=== PATIENT | male | born 1960 | race Two or more races ===

== ENCOUNTER 2020-03-03 17:20 | Outpatient (REF) | payer MEDICARE, MEDICAID, SELFPAY | END 2020-03-03 17:21 | disposition home or self-care (01) | LOC: HO.LAB 17:20 | PROVIDERS: PCP Internal Medicine Geriatric Medicine; Visit Provider Internal Medicine | DX: Z20.828 Contact with and (suspected) exposure to other viral communicable diseases (principal) | CPT/HCPCS: C9803; U0003 ==

== ENCOUNTER 2020-07-10 13:57 | Outpatient (REF) | payer OTHER, SELFPAY ==
[2020-07-11 10:12] LABS: SARS COV2 PCR INHOUSE NEGATIVE (Negative)
== END 2020-07-10 13:58 | disposition home or self-care (01) ==
LOC: HO.LAB 13:57
PROVIDERS: Visit Provider Internal Medicine
DX: Z20.822 Contact with and (suspected) exposure to COVID-19 (principal)
CPT/HCPCS: C9803; U0003

== ENCOUNTER 2021-01-14 13:13 | Outpatient (REF) | payer OTHER, SELFPAY | END 2021-01-14 13:14 | disposition home or self-care (01) | LOC: HO.LAB 13:13 | PROVIDERS: PCP Internal Medicine Geriatric Medicine; Visit Provider Internal Medicine | DX: Z20.822 Contact with and (suspected) exposure to COVID-19 (principal) | CPT/HCPCS: C9803; U0003; U0005 ==

== ENCOUNTER 2021-03-26 19:24 | Emergency (ER) | payer OTHER, SELFPAY ==
[2021-03-26 19:31] VITALS: BP 133/85; PULSE 71; RESP 20; TEMP 36.3; O2SAT 98; BMI 36.3
[2021-03-26 20:12] LABS: COVID-19 Test Positive (Negative)
[2021-03-26 23:41] VITALS: BP 148/79; PULSE 65; RESP 17; TEMP 36.7; O2SAT 97
--- NOTE | 2021-03-27 00:10 | ED.GENADULT ---
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 Patient declined any shortness of breath, patient emergency department has no respiratory issue, satting on 97% of room air. Related Data Allergies Allergy/AdvReac Type Severity Reaction Status Date / Time metformin Allergy Unknown diarrhea Verified 05/04/18 00:00 sumatriptan Allergy Unknown headache Verified 05/04/18 00:00 No Known Allergies Allergy Unverified 12/27/19 16:44 [No Known Allergies*] Kale Inhibitors Allergy Unknown cough Uncoded 04/05/19 00:00 Influenza Virus Vaccine Allergy Unknown SOB, chest Uncoded 04/05/19 00:00 tightness Review of Systems Review of Systems: All other systems are reviewed and are negative Constitutional: Reports as per HPI and Reports no additional constitutional complaints Eyes: Reports as per HPI and Reports no additional eye complaints Reports system reviewed and no additional complaints, except as documented Cardiovascular: Reports as per HPI and Reports no additional cardiovascular complaints Respiratory: Reports as per HPI and Reports no additional respiratory complaints Gastrointestinal: Reports as per HPI and Reports no additional gastrointestinal complaints Genitourinary: Reports no additional female genitourinary complaints Musculoskeletal: Reports no additional musculoskeletal complaints Skin/Breast: Reports system reviewed and no additional complaints, except as docu Psychiatric: Reports no additional psychiatric complaints Endocrine: Reports no additional endocrine complaints Hematologic/Lymphatic: Reports no additional hematologic/lymphatic complaints Allergic/Immunologic: Reports no additional allergic/immunologic complaints Reports system reviewed and no additional complaints, except as documented and Reports Abnormal speech present [facility] Social History Social History Advance Directives: No Advance Directives Information Provided: No Physical Exam Vital Signs: Vital Signs: Last Vital Signs Temp 98.0 F 03/26/21 23:41 Pulse 65 03/26/21 23:41 Resp 17 03/26/21 23:41 BP 148/79 H 03/26/21 23:41 Pulse Ox 97 03/26/21 23:41 BMI result Body Mass Index 36.3 vital signs have been reviewed as appeared to be correct. Blood pressure normal. Heart rate normal. Respiration rate normal. Temperature normal. Oxygen saturation normal. Appearance: Alert. Oriented X3. No acute distress. Head: Normal external exam. Normocephalic. Atraumatic. No Staley signs noted. No raccoon eyes noted Eyes: PERRLA. EOMI. Conjunctiva and sclera normal. Eyelids normal. ENT: TM's Normal. Pharynx normal. Uvula midline. Moist mucous membranes. No trismus noted. No drooling noted. No muffled voice noted. Neck: Normal inspection. Neck supple. FROM. No adenopathy. Thyroid Normal. No meningeal signs. No neck mass noted. CVS: Normal heart rate and rhythm. Heart sound normal. No murmurs noted. Pulses normal throughout. Respiratory: No respiratory distress. Painless inspiration. Breath sounds normal. No wheezes/rales/rhonchi noted. Chest nontender. No accessory muscle usage noted or decreased air movement noted. Abdomen: Soft and nontender. Bowel sounds normal in all 4 quadrants. No distention noted. No organomegaly noted. No visible injury noted. Back: No CVA tenderness. Full range of motion noted. Skin: Skin warm and dry. Normal skin color. Normal skin turgor. No rashes/lesions/lacerations noted. Extremities: No lower extremity edema. Extremities exhibit normal range of motion. Extremities nontender. Neuro: Oriented X 3. Cranial nerve exam: II-XII are grossly intact No motor deficit. No sensory deficit. Reflexes normal. Course Course Course Narrative: Assessment and plan. 60-year-old male came in withFor respiratory symptoms, patient tested positive for COVID, patient was instructed to self-quarantine at home for 2 weeks. Return if any difficulty breathing. Medical Decision Making Lab Data Lab results reviewed: Yes I reviewed the patient's lab results. Labs: Lab Results 03/26/21 Range/Units 19:42 COVID-19 ([facility]) Positive A (Negative) COVID-19 Clin Com See Note Discharge Plan Discharge Clinical Impression: COVID-19 virus infection Patient Disposition: Home, Self-Care Instructions: COVID-19 (Coronavirus Disease 2019) (ED) Additional Instructions: quarantine at home for 2 weeks, frequent hand washing, wears a mask at all times. Keep 6 ft testing from people. Referrals: Physician,Unknown J [Primary Care Provider] - 2 days
== END 2021-03-27 00:28 | disposition home or self-care (01) ==
PROVIDERS: Emergency Provider Emergency Medicine
DX: U07.1 COVID-19 (principal); R50.9 Fever, unspecified
CPT/HCPCS: 36415; 87635; 99283; 99284

== ENCOUNTER 2021-05-11 13:08 | Outpatient (REF) | payer OTHER, SELFPAY ==
--- NOTE | ~2021-05-11 | XR_ITS ---
EXAMINATION: XR LUMBOSACRAL SPINE WITH OBLIQUES CLINICAL INFORMATION: Lumbar ago with bilateral lower extremity sciatica. COMPARISON: CT abdomen pelvis 01/30/2019 TECHNIQUE: AP, both oblique, and lateral views of the lumbar spine. Lateral view of the lumbosacral junction. FINDINGS: 5 nonrib-bearing lumbar vertebral bodies are visualized. There is minimal dextroscoliosis of the lumbar spine which may be positional in nature. Lumbar vertebral body heights are maintained. Lumbar disc spaces are also well maintained. There are minimal degenerative changes of the posterior elements of the lower lumbar spine. Sacroiliac joints are symmetric. Pelvic calcifications are likely vascular in nature. XR/XR lumbar spine 4V min IMPRESSION: Minimal degenerative changes of the lower lumbar spine.
== END 2021-05-11 13:09 | disposition home or self-care (01) ==
LOC: HO.XRAY 13:08
PROVIDERS: Absent Provider Internal Medicine Geriatric Medicine; PCP Internal Medicine Geriatric Medicine; Visit Provider Nurse Practitioner
DX: M54.41 Lumbago with sciatica, right side (principal); M54.42 Lumbago with sciatica, left side
CPT/HCPCS: 72110

== ENCOUNTER 2022-01-15 08:19 | Emergency (ER) | payer OTHER, SELFPAY ==
--- NOTE | ~2022-01-15 | CT_ITS ---
EXAMINATION: CT ABDOMEN AND PELVIS WITHOUT CONTRAST CLINICAL INFORMATION: Bilateral lower abdominal pain. Rule out appendicitis or diverticulitis COMPARISON: CT abdomen pelvis 01/30/2019 TECHNIQUE: Multidetector volumetric imaging was performed from the superior aspect of the liver through the pubic symphysis. Sagittal and coronal reformatted images were obtained on the technologist's workstation. This CT examination was performed using dose optimization techniques as appropriate, variously including the following: *Automated exposure control *Adjustment of mA and/or kV according to patient size (this includes techniques or standardized protocols for targeted exams where dose is matched to indication/reason for exam; i.e. extremities or head) *Use of iterative reconstruction technique DLP: 724 mGy-cm FINDINGS: LUNG BASES: Minimal right basilar and lingular subsegmental atelectasis. Small amount of ingested material within the distal thoracic esophagus noted incidentally. Equivocal small hiatal hernia. LIVER, GALLBLADDER, AND BILIARY TREE: The liver is normal in size, shape, and attenuation. No focal hepatic lesion or biliary ductal dilatation is present. The gallbladder is unremarkable with no evidence of radiopaque gallstones, gallbladder wall thickening, or obvious pericholecystic inflammatory changes. PANCREAS: Unremarkable. SPLEEN: Unremarkable. ADRENAL GLANDS: Unremarkable. KIDNEYS AND URETERS: Unchanged subcentimeter low-density probable cyst in the right mid pole, too small to characterize. No other renal lesion. No renal calculi or hydronephrosis. No perinephric collection. BLADDER: Slightly thick-walled appearance favored due to limited distention. GASTROINTESTINAL TRACT: Extensive colonic diverticulosis. No evidence of acute diverticulitis. Moderate to large amount of formed stool distends the rectum. No dilated bowel loops. No bowel wall thickening. Normal appendix. No ascites or free air. ABDOMINAL WALL: Small fat-containing left inguinal hernia. LYMPH NODES: No lymphadenopathy. VASCULAR: Normal caliber abdominal aorta. Mild vascular calcifications. PELVIC VISCERA: Unremarkable. OSSEOUS STRUCTURES: No acute fracture or suspicious osseous lesion. Mild multilevel degenerative disc disease. CT/CT abdomen pelvis wo IV con IMPRESSION: 1. Extensive colonic diverticulosis. No evidence of acute diverticulitis. 2. Normal appendix. No findings of acute appendicitis. 3. Moderate to large amount of formed stool distending the rectum. Correlate clinically with signs or symptoms of constipation/fecal impaction.
[2022-01-15 09:04] VITALS: BP 138/71; PULSE 65; RESP 18; TEMP 36.6; O2SAT 96; BMI 38.2
[2022-01-15 10:55] LABS: MANUAL DIFF FLAG NO
[2022-01-15 10:57] LABS: Basophils Percent Auto 0.4 % (0-2); Eosinophils Absolute Auto 0.1 X10*3/uL (0.0-0.4); Eosinophils Percent Auto 1.7 % (0-4); Hematocrit 37.2 % (42.0-52.0); Hemoglobin 12.4 g/dl (14.0-18.0); Imm Gran Abs Auto 0.01 X10*3/uL (0.00-0.03); Imm Gran Pct Auto 0.2 % (0.0-0.4); Lymphocytes Percent Auto 38.9 % (20-40); Mean Corpuscular HGB Conc 33.3 g/dl (31.0-36.0); Mean Platelet Volume 9.7 fL (9.4-12.4); Monocytes Absolute Auto 0.5 X10*3/uL (0.1-1.2); Monocytes Percent Auto 9.5 % (2-11); Neutrophils Absolute Auto 2.6 x10*3/uL (2.0-8.3); Neutrophils Percent Auto 49.3 % (45-73); Platelet Count 311 X10*3/uL (160-400); Red Blood Count 4.59 X10*6/uL (4.60-5.80); Red Cell Distribution Width 12.7 % (11.0-16.0); White Blood Count 5.3 X10*3/uL (4.8-10.8)
[2022-01-15 11:11] LABS: Anion Gap 15 (12-20); Blood Urea Nitrogen 27 mg/dL (9-16); Calcium 9.8 mg/dL (8.4-10.2); Carbon Dioxide 27 mmol/L (22-29); Chloride 100 mmol/L (96-108); Creatinine Clr Calc Pharmacy 61.4; Estimated Glomerular Filt Rate 50; Glucose Random 247 mg/dL (60-115); Potassium 4.1 mmol/L (3.3-5.1); Sodium 138 mmol/L (135-145)
--- NOTE | 2022-01-15 12:07 | ED_ITS ---
HPI - Abdominal Pain General Chief Complaint: Abdominal Pain Stated Complaint: infedction on private area Time Seen by Provider: 01/15/22 11:04 Source: patient Mode of arrival: ambulatory Limitations: language barrier (Patient's 1st language is Indonesian, he does speak some Algerian, translator/interpreter was used) History of Present Illness HPI narrative: 61-year-old male who presents emergency department for evaluation of abdominal pain. The patient states that the pain came on suddenly 2 days prior. He points to both his left and right lower quadrant areas when asked to localize the pain. He states the pain is a constant, stabbing pain which is 8/10. He states the pain became worse last night years unable to sleep. The patient states that similar pain in the past and was due to urinary tract infection. He has noted urinary frequency but the denies dysuria. He denied nausea, vomiting, diarrhea, black stools or bloody stools. MD elicited complaint: abdominal pain Pertinent past history: past UTI Onset (ago): day(s) (2) Pain Consistency: constant Location: LUQ, RLQ and suprapubic Severity: severe Pain scale (0-10): 8 Quality: stabbing Radiation: none Migration to: no migration Exacerbating factors: nothing Relieving factors: nothing Associated symptoms: other (Urinary frequency) Related Data Allergies Allergy/AdvReac Type Severity Reaction Status Date / Time metformin Allergy Unknown diarrhea Verified 05/04/18 00:00 sumatriptan Allergy Unknown headache Verified 05/04/18 00:00 No Known Allergies Allergy Unverified 12/27/19 16:44 [No Known Allergies*] Kale Inhibitors Allergy Unknown cough Uncoded 04/05/19 00:00 Influenza Virus Vaccine Allergy Unknown SOB, chest Uncoded 04/05/19 00:00 tightness Review of Systems Review of Systems Yes all other systems are reviewed and are negative [facility] Past Medical History [facility] Narrative: Past medical history: Diabetes mellitus. Past surgical history: None. Social history: He denies tobacco, alcohol and drug use. Social History Social History Advance Directives: No Advance Directives Information Provided: Yes Physical Exam ED Vital Signs: Vital Signs - 24 hr 01/15/22 09:04 Temperature 98 F Pulse Rate 65 Respiratory Rate 18 Blood Pressure 138/71 Pulse Oximetry 96 Oxygen Delivery Method Room Air BMI result Body Mass Index 38.2 Const General: cooperative and no acute distress Orientation/consciousness: oriented to person and oriented to place Limitations: no limitations HENMT Head: Yes normal to inspection, Yes normocephalic and Yes atraumatic Ears: external ears normal General nose exam: Normal external nose present Face and sinus: Yes normal facial exam Mouth: Normal oral and palatal mucosa present Throat: Yes posterior oropharynx normal Eyes General: appearance normal, both eyes and all related structures Pupils: Equal, round and reactive pupils present Neck Neck: Yes normal visual inspection, Yes no lymphadenopathy, Yes trachea midline and Yes supple Chest Chest palpation & inspection: normal inspection of the chest and normal palpation of entire chest wall Resp Effort & Inspection: normal respiratory effort and able to speak in complete sentences Auscultation: clear to auscultation bilaterally Cardio Rate: regular rate Rhythm: regular rhythm Heart sounds: S1 normal heart sound present, S2 normal heart sound present and no murmurs GI Inspection: Yes normal to inspection Palpation (GI): Soft to palpation, Tenderness to palpation present (GI) in the LLQ (Moderate), in the RLQ (Moderate) and suprapubicly (Mild) and no guarding Auscultation: normal bowel sounds General: Yes no CVA tenderness Penis: normal penis and uncircumcised Meatus: meatus normal Scrotum: scrotum normal Testes: Testes normal Back/Spine/Pelvis Back: no CVA tenderness Skin General skin exam: no rashes or lesions noted Neuro General: oriented to person and oriented to place Cranial nerves: Yes CN's II-XII intact bilaterally and Yes Equal, round and reactive pupils present Cognition (Neuro): normal cognition Motor exam (neuro): 5/5 motor strength present throughout Extrem General: Yes normal to inspection Psych Appearance: grossly normal Speech and movement: Normal speech and movement present Affect: normal affect Attitude: cooperative Thought process: Normal thought process present Thought content: Normal thought content present Course Course Course Narrative: 61-year-old male with history of diabetes who presents emergency department for evaluation of lower abdominal pain which came on suddenly 2 days prior, the pain is a constant sharp pain which is 8/10 at its worst. The pain got worse over last 24 hours. Patient states that a similar pain in the past when he had a urinary tract infection. Patient has had no dysuria but he has had urinary frequency. Vital signs were normal. The patient's abdominal exam did reveal moderate right lower and left lower quadrant tenderness with mild suprapubic tenderness otherwise was unremarkable. Patient was ordered to get Toradol 15 mg IV and normal saline x1 L. 1217: Laboratory evaluation: From triage the patient had a CBC and BMP which revealed an elevated BUN of 27 elevated creatinine of 1.44. Patient's glucose was also elevated 247. I did add liver panel, lipase and a urinalysis will be obtained. 1457: The patient's liver panel was normal. Lipase was not elevated. The romario ent's CT scan of the abdomen pelvis did not reveal a clear cause for the patient's pain. The patient did have diverticulosis but no evidence of diverticulitis. I did discuss these findings with the patient. The I did advise the patient to increase the fiber in his diet and increase the amount of fluid that he drinks daily. Also the patient was advised to take Metamucil twice a day for the next week to see if this improves his symptoms. He was given printed and verbal instructions and discharged home. MDM - Abdominal Pain Lab Data Result diagrams: 01/15/22 10:51 01/15/22 10:51 Labs: Lab Results 01/15/22 01/15/22 01/15/22 Range/Units 10:51 10:51 12:20 WBC 5.3 (4.8-10.8) X10*3/uL RBC 4.59 L (4.60-5.80) X10*6/uL Hgb 12.4 L (14.0-18.0) g/dl Hct 37.2 L (42.0-52.0) % MCV 81.0 (80.0-98.0) fL MCH 27.0 (27.0-33.0) pg MCHC 33.3 (31.0-36.0) g/dl RDW 12.7 (11.0-16.0) % Plt Count 311 (160-400) X10*3/uL MPV 9.7 (9.4-12.4) fL Immature Gran % (Auto) 0.2 (0.0-0.4) % Neut % (Auto) 49.3 (45-73) % Lymph % (Auto) 38.9 (20-40) % [place] % (Auto) 9.5 (2-11) % Eos % (Auto) 1.7 (0-4) % Baso % (Auto) 0.4 (0-2) % Lymph # (Auto) 2.0 (1.2-4.9) X10*3/uL [place] # (Auto) 0.5 (0.1-1.2) X10*3/uL Eos # (Auto) 0.1 (0.0-0.4) X10*3/uL Baso # (Auto) 0.0 (0.0-0.2) X10*3/uL Abs Immat Gran (auto) 0.01 (0.00-0.03) X10*3/uL Absolute Neuts (auto) 2.6 (2.0-8.3) x10*3/uL Absolute Nucleated RBC 0.000 (0.0-0.012) X10*3/uL Nucleated RBC % (auto) 0.0 (0.0-0.2) /100WBC Sodium 138 (135-145) mmol/L Potassium 4.1 (3.3-5.1) mmol/L Chloride 100 (96-108) mmol/L Carbon Dioxide 27 (22-29) mmol/L Anion Gap 15 (12-20) BUN 27 H (9-16) mg/dL Creatinine 1.44 H (0.5-1.4) mg/dL Estim Creat Clear Calc 61.4 Estimated GFR 50 Random Glucose 247 H (60-115) mg/dL Calcium 9.8 (8.4-10.2) mg/dL Total Bilirubin 0.5 (0.0-1.0) mg/dL Direct Bilirubin 0.2 (0.0-0.5) mg/dL AST 22 (5-37) U/L ALT 37 (0-40) U/L Alkaline Phosphatase 75 (39-117) U/L Total Protein 7.4 (6.5-8.0) g/dL Albumin 4.6 (3.5-5.0) g/dL Lipase 59 (8-78) U/L Urine Color Yellow Urine Appearance Clear Urine pH 5.0 (5.0-9.0) Ur Specific [place] 1.015 (1.005-1.025) Urine Protein Negative (Neg-Trace) mg/dL Urine Glucose (UA) 250 H (Negative) mg/dL Urine Ketones Negative (Negative) mg/dL Urine Blood Negative (Negative) Urine Nitrite Negative (Negative) Ur Leukocyte Esterase Negative (Negative) Discharge Plan Discharge Clinical Impression: Abdominal pain Qualifiers: Abdominal location: lower abdomen, unspecified Qualified Code(s): R10.30 - Lower abdominal pain, unspecified Patient Disposition: Home, Self-Care Instructions: High Fiber Diet (ED), Abdominal Pain (ED) Additional Instructions: Your blood work was normal. Your urinalysis was normal. The CT scan of your abdomen pelvis without IV contrast did not reveal any clear cause for your pain. At this time your appendix and liver looked normal. You do have small pockets in your large intestine call diverticuli disease (diverticulosis) but these are not infected. At this time I do not have a clear cause for your abdominal pain. I want you to increase the amount of fiber and the food that you eat. I want you to take Metamucil 1 tsp mixed in 8 oz of water twice a day for 1 week. I want you to increase your fluid intake for the next week. Hopefully these changes will improve your abdominal pain. Follow-up with your doctor in 2 days. Please return to the emergency department if your symptoms get worse or if you develop any symptoms that are concerning to you. Print Language: Indonesian
[2022-01-15 12:29] LABS: Appearance Urine Clear; Color Urine Yellow; Glucose Urine UA 250 mg/dL (Negative); Leukocyte Esterase Urine Negative (Negative); Nitrite Urine Negative (Negative); Specific Gravity - Urine 1.015 (1.005-1.025); Urine Blood Negative (Negative); Urine Ketones Negative (Negative); Urine Protein Negative (Neg-Trace)
[2022-01-15] MEDS: 0.9 % Sodium Chloride 1,000 ML 999 ML IV (12:53)
[2022-01-15] MEDS: Ketorolac Tromethamine 15 MG/ML VIAL IVPUSH (12:53)
[2022-01-15 13:18] LABS: Alanine Aminotransferase 37 U/L (0-40); Albumin Level 4.6 g/dL (3.5-5.0); Alkaline Phosphatase 75 U/L (39-117); Aspartate Amino Transferase 22 U/L (5-37); Bilirubin Direct 0.2 mg/dL (0.0-0.5); Bilirubin Total 0.5 mg/dL (0.0-1.0); Lipase 59 U/L (8-78); Total Protein 7.4 g/dL (6.5-8.0)
[2022-01-15 15:44] VITALS: BP 132/75; PULSE 65; RESP 17; TEMP 36.7; O2SAT 98
== END 2022-01-15 16:07 | disposition home or self-care (01) ==
PROVIDERS: Emergency Provider Emergency Medicine Emergency Medical Services; PCP Internal Medicine
DX: R10.30 Lower abdominal pain, unspecified (principal); Z79.899 Other long term (current) drug therapy
CPT/HCPCS: 36415; 74176; 80048; 80076; 81003; 83690; 85025; 96361; 96374; 99284; J1885

== ENCOUNTER 2022-12-09 08:48 | Outpatient (REF) | payer OTHER, SELFPAY ==
[2022-12-09 12:03] LABS: Cholesterol 124 mg/dL (<200); HDL Cholesterol 30 mg/dL (>40); LDL Cholesterol Calculated 37 mg/dL (<100); Triglycerides 286 mg/dL (<150)
[2022-12-09 12:53] LABS: Creatinine Urine 213.12 mg/dL
== END 2022-12-09 08:49 | disposition home or self-care (01) ==
LOC: HO.HHCL 08:48
PROVIDERS: Visit Provider Registered Nurse
DX: E11.65 Type 2 diabetes mellitus with hyperglycemia (principal)
CPT/HCPCS: 36415; 80061; 82043

== ENCOUNTER 2022-12-27 10:30 | Outpatient (REF) | payer OTHER, SELFPAY ==
--- NOTE | ~2022-12-27 | XR_ITS ---
EXAMINATION: XR CERVICAL SPINE CLINICAL INFORMATION: Upper limb numbness, left arm numbness. COMPARISON: Cervical spine radiographs dated 04/01/2016. TECHNIQUE: AP, lateral, open-mouth, and bilateral oblique views of the cervical spine. FINDINGS: Normal vertebral body alignment. No acute fracture or subluxation. No loss of vertebral body height. Loss of intervertebral disc height with anterior endplate osteophytes at C5-C6 and C6-C7. Mild bilateral neural foraminal stenosis at these levels. Findings are slightly progressed when compared to the prior radiographs. Unremarkable prevertebral soft tissues. Normal atlantoaxial alignment. XR/XR cervical spine 5V IMPRESSION: Moderate degenerative disc disease at C5-C6 and C6-C7 with mild bilateral neural foraminal stenosis, slightly progressed when compared to the prior radiographs.
== END 2022-12-27 10:31 | disposition home or self-care (01) ==
LOC: HO.HHCX 10:30
PROVIDERS: Visit Provider Emergency Medicine
DX: R20.0 Anesthesia of skin (principal)
CPT/HCPCS: 72050

== ENCOUNTER 2023-10-19 09:22 | Outpatient (REF) | payer OTHER, SELFPAY ==
[2023-10-19 11:15] LABS: Basophils Percent Auto 0.5 % (0-2); Eosinophils Absolute Auto 0.1 X10*3/uL (0.0-0.4); Eosinophils Percent Auto 2.6 % (0-4); Hemoglobin 13.1 g/dl (14.0-18.0); Imm Gran Abs Auto 0.01 X10*3/uL (0.00-0.03); Imm Gran Pct Auto 0.2 % (0.0-0.4); Lymphocytes Absolute Auto 1.6 X10*3/uL (1.2-4.9); Lymphocytes Percent Auto 37.9 % (20-40); MANUAL DIFF FLAG SCAN; Mean Corpuscular HGB Conc 33.6 g/dl (31.0-36.0); Mean Corpuscular Hemoglobin 27.9 pg (27.0-33.0); Monocytes Absolute Auto 0.4 X10*3/uL (0.1-1.2); Monocytes Percent Auto 9.6 % (2-11); Neutrophils Absolute Auto 2.1 x10*3/uL (2.0-8.3); Neutrophils Percent Auto 49.2 % (45-73); PLT CLUMP 1; Red Cell Distribution Width 13.3 % (11.0-16.0); SCAN SMEAR FLAG 1
[2023-10-19 11:16] LABS: White Blood Count 4.2 X10*3/uL (4.8-10.8)
[2023-10-19 11:33] LABS: Platelet Count 280 X10*3/uL (160-400)
[2023-10-19 11:34] LABS: SLIDE REVIEW VERIFIED
[2023-10-19 11:42] LABS: Alanine Aminotransferase 37 U/L (0-40); Albumin Level 4.3 g/dL (3.5-5.0); Alkaline Phosphatase 69 U/L (39-117); Anion Gap 12 (12-20); Aspartate Amino Transferase 21 U/L (5-37); Bilirubin Total 0.6 mg/dL (0.0-1.0); Blood Urea Nitrogen 18 mg/dL (9-16); Calcium 9.2 mg/dL (8.4-10.2); Carbon Dioxide 25 mmol/L (22-29); Chloride 105 mmol/L (96-108); Cholesterol 167 mg/dL (<200); Estimated Glomerular Filt Rate > 60; Glucose Random 171 mg/dL (60-115); HDL Cholesterol 31 mg/dL (>40); LDL Cholesterol Calculated 78 mg/dL (<100); Potassium 3.8 mmol/L (3.3-5.1); Sodium 138 mmol/L (135-145); TSH reflex Free T4 2.88 uIU/mL (0.32-4.0); Total Protein 7.5 g/dL (6.5-8.0); Triglycerides 292 mg/dL (<150)
[2023-10-19 11:45] LABS: Estimated Average Glucose 217 mg/dL; Hemoglobin A1c % 9.2 % (<6.0)
[2023-10-19 11:54] LABS: Vitamin B12 614 pg/mL (200-900)
[2023-10-19 14:54] LABS: Creatinine Urine 179.02 mg/dL; Microalbum/Creatinine Ratio Ur 20.1 ug/mg cr (<30)
[2023-10-21 16:34] LABS: RPR Rapid Plasma Reagin NON-REACTIVE (NON-REACTIVE)
== END 2023-10-19 09:23 | disposition home or self-care (01) ==
LOC: HO.HHCL 09:22
PROVIDERS: Visit Provider Family Medicine
DX: R20.2 Paresthesia of skin (principal); E11.65 Type 2 diabetes mellitus with hyperglycemia
CPT/HCPCS: 36415; 80053; 80061; 82043; 82570; 82607; 82746; 83036; 84443; 85025; 86592

== ENCOUNTER 2023-11-14 10:55 | Outpatient (REF) | payer OTHER, SELFPAY ==
[2023-11-20 07:59] LABS: Testosterone, Total 148 ng/dL (250-1100)
== END 2023-11-14 10:56 | disposition home or self-care (01) ==
LOC: HO.HHCL 10:55
PROVIDERS: Visit Provider Registered Nurse
DX: R53.83 Other fatigue (principal)
CPT/HCPCS: 36415; 84403

== ENCOUNTER 2023-12-09 09:11 | Outpatient (REF) | payer OTHER, SELFPAY ==
[2023-12-14 14:19] LABS: Testosterone, Total 118 ng/dL (250-1100)
== END 2023-12-09 09:12 | disposition home or self-care (01) ==
LOC: HO.HHCL 09:11
PROVIDERS: Visit Provider Registered Nurse
DX: R79.89 Other specified abnormal findings of blood chemistry (principal)
CPT/HCPCS: 36415; 84403

== ENCOUNTER 2024-02-14 13:08 | Outpatient (AMB) | payer OTHER, SELFPAY ==
--- NOTE | 2024-02-14 13:10 | A.OFFVIS_ITS ---
Intake Visit Reasons: low testosterone Intake Note: Patient is present for Low Testosterone Urology Medication:none Antibiotic Allergy:metformin Blood Thinner:none Security Escort Required: No Allergies metformin Allergy (Unknown, Verified 02/14/24 16:05) diarrhea sumatriptan Allergy (Unknown, Verified 02/14/24 16:05) headache No Known Allergies [No Known Allergies*] Allergy (Verified 02/14/24 16:05) Kale Inhibitors Allergy (Unknown, Uncoded 02/14/24 16:05) cough Influenza Virus Vaccine Allergy (Unknown, Uncoded 02/14/24 16:05) SOB, chest tightness Medication List - Last Reconciled 02/14/24 by ADRIÁN Manning- aspirin 81 mg PO DAILY carvedilol 6.25 mg PO BID chlorthalidone 25 mg PO DAILY diclofenac sodium 1% topical insulin aspart U-100 (Novolog U-100 Insulin aspart) subcut insulin glargine (Lantus U-100 Insulin) units subcut tirzepatide (Mounjaro) mg subcut tirzepatide (Mounjaro) mg subcut HPI Comments Details: Pasquale is a very pleasant 63-year-old Wolof-speaking male patient of Dr. Byrne he is accompanied by his at today's office visit. He has a past medical history of diabetes and hypertension. He presents to the office today as a new patient for hypogonadism. In discussion with the patient today reports having followed up with his PCP in discussing noting over the last 4-6 months having issues maintaining his erections at which time his testosterone levels were drawn. These results were reviewed with the patient today. 12/02 118. He otherwise denies any bothersome urinary issues. He denies any previous trauma. In office urinalysis results reviewed with the patient today. When asked he denies urinary urgency, urinary frequency, incontinence, nocturia, hematuria, dysuria, foul smelling urine, changes to urinary stream, flank pain, fever, and or chills. He is happy with his current voiding parameters. We discussed at length potential causes of hypogonadism as well as lifestyle modifications to assist with hypogonadism. Discussed further workup to include hypogonadism labs. He otherwise offers no other issues or concerns at this time. Review of Systems Const All systems reviewed & are unremarkable except as noted in HPI and below Physical Exam Const General: cooperative, healthy appearing, comfortable, no acute distress, well developed, alert and awake Nutritional Appearance: overweight Orientation/consciousness: patient oriented x3 Limitations: no limitations HEENT Head: Yes normal to inspection, Yes normocephalic and Yes atraumatic Ears: hearing grossly normal bilaterally Eyes General: appearance normal, both eyes and all related structures Neck Neck: Yes normal visual inspection and Yes trachea midline Chest Chest palpation & inspection: normal inspection of the chest Resp Effort & Inspection: normal respiratory effort and able to speak in complete sentences Cardio Rate: regular rate GI Inspection: Yes normal to inspection General: Yes no CVA tenderness Back/Spine/Pelvis Back: no CVA tenderness Skin General skin exam: no rashes or lesions noted Neuro General: patient oriented x3 Extrem General: Yes normal to inspection Psych Appearance: grossly normal and well kempt Mental Status: mental status grossly normal Speech and movement: Normal speech and movement present and Clear speech present Affect: normal affect Attitude: cooperative Thought process: Normal thought process present Thought content: Normal thought content present Insight: Fair insight present (Psych) Judgement: Fair judgement present (Psych) Results AMB Urinalysis, Automated UA Leukoctes 0 Mike/uL Last Edit by KAREN Magallanes on 02/14/24 13:39 UA Nitrite Negative Last Edit by KAREN Magallanes on 02/14/24 13:39 UA Urobilinogen 0.2 mg/dL Last Edit by KAREN Magallanes on 02/14/24 13:3 9 UA Protein 15 mg/dL Last Edit by KAREN Magallanes on 02/14/24 13:39 UA pH 6.0 Last Edit by KAREN Magallanes on 02/14/24 13:39 UA Blood 0 Sandeep/uL Last Edit by KAREN Magallanes on 02/14/24 13:39 UA Specific [place] 1.020 Last Edit by KAREN Magallanes on 02/14/24 13: 39 UA Ketone Negative Last Edit by KAREN Magallanes on 02/14/24 13:39 UA Bilirubin 0 mg/dL Last Edit by KAREN Magallanes on 02/14/24 13:39 UA Glucose 500 mg/dL Last Edit by KAREN Magallanes on 02/14/24 13:39 Results Reviewed Results Reviewed: Laboratory Last Values Urine pH (Auto) 6.0 02/14/24 13:38 Specific [place] (Auto) 1.020 02/14/24 13:38 Urine Protein (Auto) 15 mg/dL 02/14/24 13:38 Glucose (UA)(Auto) 500 mg/dL 02/14/24 13:38 Urine Ketones (Auto) Negative 02/14/24 13:38 Urine Blood (Auto) 0 Sandeep/uL 02/14/24 13:38 Urine Nitrite (Auto) Negative 02/14/24 13:38 Urine Bilirubin (Auto) 0 mg/dL 02/14/24 13:38 Urine Urobilinogen (Auto) 0.2 mg/dL 02/14/24 13:38 Leukocyte Esterase (Auto) 0 Mike/uL 02/14/24 13:38 Assessment & Plan Assessment & Plan (1) Hypogonadism in male: Code(s): E29.1 - Testicular hypofunction Category: Medical (2) Erectile dysfunction associated with type 2 diabetes mellitus: Code(s): E11.69 - Type 2 diabetes mellitus with other specified complication; N52.1 - Erectile dysfunction due to diseases classified elsewhere Category: Medical Plan In office urinalysis results reviewed with the patient today; as noted above. We discussed at length potential causes of hypogonadism. Discussed further treatment options of erectile dysfunction. We discussed lifestyle modifications to assist with hypogonadism. Recent testosterone results reviewed with the patient today; as noted above. Discussed obtaining SHBG, LH, PSA, FSH, prolactin, estradiol, albumin, and testosterone free and total for further assessment evaluation. He otherwise denies any bothersome urinary issues. He reports be happy with current voiding parameters. Follow-up in 1-3 months with lab to be completed prior; or sooner with any issues, concerns, and or questions. Orders: Orders Sex Hormone Binding Globulin Today E29.1 - Testicular hypofunction Lutenizing Hormone Today E29.1 - Testicular hypofunction Prostate Specific Antigen Today E29.1 - Testicular hypofunction Follicle Stimulating Hormone Today E29.1 - Testicular hypofunction AMB Urinalysis Automated Today Z13.9 - Encounter for screening, unspecified Prolactin Today E29.1 - Testicular hypofunction Testosterone, Free/Total Today E29.1 - Testicular hypofunction Estradiol Ultra Sensitive Today E29.1 - Testicular hypofunction Albumin Level Today E29.1 - Testicular hypofunction Patient Instructions: The patient had an opportunity to ask questions regarding the treatment plan. All questions were answered. Physical exam, labs, and imaging were discussed and reviewed in detail. As well as risks, benefits, and discussion of treatment choices. No major barriers to understanding were identified. The patient expressed understanding and agreement with the above treatment plan. The patient was made aware they should contact our office by phone for worsening of their current condition, the appearance of new symptoms, or with any questions or concerns. Compliance is encouraged with any medications and follow up testing that is ordered. It is a privilege to be allowed the opportunity to participate in? your urological care.? Again, if you have any questions or concerns If you have any questions or concerns please do not hesitate to contact me. The office is [phone]. This note is constructed using voice recognition software. While every effort has been made to ensure accuracy wash plant operator errors may have been included. Yours sincerely, VIKTOR Manning Coding Level of Care Code New Pt Level 3 (91476) Diagnoses Hypogonadism in male E29.1 Erectile dysfunction associated with type 2 diabetes mellitus E11.69; N52.1
== END 2024-02-14 13:40 | disposition home or self-care (01) ==
LOC: HO.HUSH 13:08
PROVIDERS: PCP Registered Nurse; Visit Provider Nurse Practitioner Family
DX: E29.1 Testicular hypofunction (principal); E11.69 Type 2 diabetes mellitus with other specified complication; N52.1 Erectile dysfunction due to diseases classified elsewhere; Z13.9 Encounter for screening, unspecified
CPT/HCPCS: 99203

== ENCOUNTER → 2024-02-14 13:08 | Outpatient (BNVA) | payer OTHER, SELFPAY | PROVIDERS: PCP Registered Nurse; Visit Provider Nurse Practitioner Family | DX: E29.1 Testicular hypofunction (principal); E11.69 Type 2 diabetes mellitus with other specified complication; N52.1 Erectile dysfunction due to diseases classified elsewhere | CPT/HCPCS: 81003; 99202 ==

== ENCOUNTER 2024-04-13 09:33 | Outpatient (REF) | payer OTHER, SELFPAY ==
[2024-04-13 10:58] LABS: Albumin Level 4.5 g/dL (3.5-5.0)
[2024-04-13 11:45] LABS: Prostate Specific Antigen 1.77 ng/mL (<0.05-4.0)
[2024-04-15 07:08] LABS: Follicle Stimulating Hormone 7.3 mIU/mL (1.4-12.8); Lutenizing Hormone 4.2 mIU/mL (1.6-15.2); Prolactin 3.6 ng/mL (2.0-18.0); Sex Hormone Binding Globulin 12 nmol/L (22-77)
[2024-04-19 01:24] LABS: Estradiol Ultra Sensitive 28 pg/mL (< OR = 29)
[2024-04-20 16:57] LABS: Testosterone, Free 35.3 pg/mL (35.0-155.0); Testosterone, Total 188 ng/dL (250-1100)
== END 2024-04-13 09:34 | disposition home or self-care (01) ==
LOC: HO.LAB 09:33
PROVIDERS: Visit Provider Nurse Practitioner Family
DX: E29.1 Testicular hypofunction (principal); Z12.5 Encounter for screening for malignant neoplasm of prostate
CPT/HCPCS: 36415; 82040; 82670; 83001; 83002; 84146; 84153; 84270; 84402; 84403

== ENCOUNTER 2024-05-17 10:58 | Outpatient (REF) | payer OTHER, SELFPAY ==
--- OUTSIDE RECORDS SUMMARY | 2024-05-17 11:02 | XMS_ITS | Encounter Summary ---
Author Organization [employer] [facility] Address [address] [place] [address] Care Team Providers Care Cnc Lathe Machine Operator Name Role Phone Radha Byrne Primary Care Provider [phone] Harshad Son MD Unavailable [phone] Yinka Connell MD Unavailable [phone] Reason for Visit * Reason Comments Med Refill Encounter Details Date Type Department Care Team (Late st Contact Info) Description 04/30/2024 Refill [facility] [address] [place] [address] Radha Byrne FNP [address] [place], [place] [id number] Social History Tobacco Use Types Packs/Day Years Used Date Smoking Tobacco: Never Passive Smoke Exposure: Never Smokeless Tobacco: Never Alcohol Use Standard Drinks/Week Comments Never 0 (1 standard drink = 0.6 oz pur e alcohol) Alcohol Answer Date Recorded Frequency of Alcohol Consumption Not on file 02/03/2024 Average Number of Drinks Not on file 024 Frequency of Binge Drinking Not on file 01/10 Score 0 02/03/2024 Depression Answer Date Recorded Patient Health Questionnaire-9 Score 5 11/02/2023 Patient Health Questionnaire-9 Score 5 11/02/2023 Last PHQ-9: Questionnaire Data Not on file 0 11/02/2023 Housing Stability Answer Date Recorded What is your housing situation today? I have aimee khoury 11/02/[address] you li ve. Do you have problems with any of the following? None of the above 11/02/2023 Food Insecurity Answer Date Recorded Within the past 12 months, y ou worried that your food would run out before you got money to buy more: Never True 11/02/2023 Within the past 12 months,th e food you bought just didn't last and you didn't have enough money to get more: Never True Transportation Answer Date Recorded In the past 12 months, has l ack of transportation kept you from medical appts, meetings, work or from getting things needed for daily living? No 11/02/2023 Utilities Answer Date Recorded In the past 12 months, has t he electric, gas, oil or water company threatened to shut off services in your home? No 11/02/2023 Depression Answer Date Recorded Patient Health Questionnaire-2 Score 2 11/02/2023 Internet Access Answer Date Recorded Internet Access Q1 Yes 12/12/2023 Internet Access Q2 Not on file 12/12/2023 Sex and Gender Information Value Date Recorded Sex Assigned at Male 02/08/2022 10:15 AM EDT Legal Sex Male 10:15 AM EDT Gender Identity Male 02/08/2022 10:15 AM EDT Sexual Orientation Straight 02/08/2022 10 :15 AM EDT documented as of this encounter Plan of Treatment Upcoming Encounters Date Type Department Care Team (Late st Contact Info) Description 06/01/2024 8:45 AM EST Office Visit [facility] [address] [place] [address] Radha Byrne FNP [address] [place] [address] documented as of this encounter Visit Diagnoses Not on filedocumented in this encounter Additional Health Concerns Assessment Noted Time PHQ-9 Depression Total Score: 5 11/02/19 24 4:59 PM EDT documented as of this encounter Care Teams Cnc Lathe Machine Operator Relationship Specialty Start Date End Date Radha Byrne FNP [address] [place] [id number] PCP - General Family Medicine 12/02/21 Harshad Son MD [address] [place] [address] Cardiology 02/05/24 Yinka Connell MD [address] [place] [address] [place] [id number] Urology 02/05/24 documented as of this encounter
--- OUTSIDE RECORDS SUMMARY | 2024-05-17 11:02 | XMS_ITS | Clinical Summary ---
Author Organization [email or web address] Address [address] [place] [address] Care Team Providers Care [employer] Name Role Phone Radha Byrne ADRIÁN Primary Care Provider [phone] Harshad Son MD Unavailable Yinka Connell MD Unavailable Allergies Active Allergy Reactions Criticality Noted Date Comments Kale Inhibitors Cough 07/02/2010 Influenza Vaccines Medium 01/17/2014 Other reaction(s): SOB, chest tightness noted in 2013; has received IIV4 p-free doses since w/o issue Medications FREESTYLE LITE test stripIndicatio ns:Type 2 diabetes mellitus treated with insulin ([facility]) TEST BLOOD SUGAR TWICE DAILY 100 strip 11 023 Active carvedilol (Coreg) 6.25 MG tablet TAKE 1 TABLET BY MOUTH TWICE DAILY IN THE MORNING AND IN THE EVENING WITH FOOD 023 Active TRUEplus Lancets 33G miscIndication s:Type 2 diabetes mellitus with hyperglycemia, unspecified whether usp insulin use ([facility]) TEST BLOOD SUGAR TWICE DAILY 100 each 11 023 Active UltiCare Insulin Syringe 31G X 5/16 1 ML misc USE FIVE TIMES DAILY TO INJECT INSULIN FOUR TIMES DAILY 100 each 11 023 Active Alcohol Swabs (Alcohol Prep) 70 % pads USE DIRECTED FOUR TIMES DAILY 100 each 023 Active verapamil SR (Calan SR) 120 MG ER tablet Take 1 tablet (120 mg) by mouth in the morning. 90 tablet 3 Active chlorthalidone (Hygroton) 25 MG tablet TAKE 1 TABLET BY MOUTH EVERY EVENING 90 tablet 3 024 Active Diclofenac Sodium 1 % gelIndications :Paresthesia of bilateral legs Apply to the affected area 3x/day as needed for pain (Nicaraguan label please) 150 g 1 Active atorvastatin (Lipitor) 80 MG tablet TAKE 1 TABLET BY MOUTH AT BEDTIME ((for cholesterol) 90 tablet 1 024 Active omeprazole (PriLOSEC) [address] capsule TAKE 1 CAPSULE BY MOUTH TWICE DAILY IN THE MORNING AND AT BEDTIME 30-60 MINUTES BEFORE MEALS AND 1 HOUR BEFORE BEDTIME 180 capsule 3 024 Active metFORMIN (Glucophage) 1000 MG tablet TAKE 1 TABLET BY MOUTH TWICE DAILY IN THE MORNING AND IN THE EVENING 180 tablet 3 024 Active cetirizine (ZyrTEC) 10 MG tablet TAKE 1 TABLET BY MOUTH ONCE DAILY NEEDED FOR ALLERGIES 90 tablet 3 Active Tirzepatide (Mounjaro) 7.5 MG/0.5ML solution auto-injectorI ndications:Typ e 2 diabetes mellitus with hyperglycemia, unspecified whether usp insulin use ([facility]) Inject 7.5 mg under the skin 1 (one) time per week. 0.5 mL 024 Active insulin glargine (Lantus) 100 UNIT/ML injectionIndic ations:Type 2 diabetes mellitus treated with insulin ([facility]) INJECT 17 UNITS SUBCUTANEOUSLY EVERY MORNING 10 mL Active Insulin Aspart (NovoLOG) 100 UNIT/ML solutionIndica tions:Type 2 diabetes mellitus treated with insulin ([facility]) INJECT SUBCUTANEOUSLY FOUR TIMES DAILY BEFORE MEALS DIRECTED, FOR BLOOD SUGAR < 150= 0 UNITS, 151-200= 2 UNITS, 201-250= 4 UNITS, 251-300 = 6 UNITS, 301-350 = 8 UNITS 10 mL 5 024 Active Aspirin Low Dose 81 MG EC tablet TAKE 1 TABLET BY MOUTH EVERY MORNING 90 tablet 3 Active losartan (Cozaar) 50 MG tablet TAKE 1 TABLET BY MOUTH EVERY MORNING 90 tablet 1 025 Active Ascorbic Acid (vitamin C) 1000 MG tablet Take 1 tablet by mouth Once per day. Active cyanocobalamin (Vitamin B-12) 1000 MCG tablet Take 1 tablet by mouth Once per day. Active Anthony Root (ANTHONY PO) Take 750 mg by mouth in the morning. Active folic acid (Folate) 400 MCG tablet Take 1 tablet by mouth Once per day. Active cholecalcifero l (D3 2000) 50 MCG (1999 UT) capsule Take 1 capsule by mouth in the morning. Active aspirin-acetam inophen-caffei ne (Excedrin Migraine) 250-250-65 MG tablet Take 1 tablet by mouth if needed each day for headaches. Active FREESTYLE LITE test strip TEST BLOOD SUGAR TWICE DAILY 022 2024 Discontinued(M ed list cleanup (will not trigger notification to Pharmacy)) GaviLAX 17 GM/SCOOP powder TAKE 17 GM MIXED IN 8 OUNCES OF WATER, COFFEE OR TEA ONCE DAILY NEEDED 022 2024 Discontinued(M ed list cleanup (will not trigger notification to Pharmacy)) ascorbic acid (Vitamin C) 500 MG tablet take 1 by oral route every day 2024 Discontinued(M ed list cleanup (will not trigger notification to Pharmacy)) Ubrogepant (Ubrelvy) 50 MG tabletIndicati ons:Lacunar infarction (CMS/HCC),Migr kevin without aura, not refractory Take 1 tablet (50mg) by mouth at first sign or symptom of a migraine. If symptoms persist or return, may repeat dose after 2 hours. Maximum: 200 mg per 24 hours 16 tablet 2 023 2024 Discontinued(M ed list cleanup (will not trigger notification to Pharmacy)) Aspirin Adult Low Strength 81 MG EC tablet TAKE 1 TABLET BY MOUTH EVERY MORNING 90 tablet 3 023 2024 Discontinued clotrimazole (Lotrimin) 1 % cream APPLY TOPICALLY TO FEET AND SURROUNDING AREA(S) TWICE DAILY FOR 4 TO 6 WEEKS 60 g 1 023 2024 Discontinued(M ed list cleanup (will not trigger notification to Pharmacy)) Diclofenac Sodium 1 % gel APPLY 2 GRAMS TOPICALLY TO THE AFFECTED AREAS 3-4 TIMES PER DAY NEEDED FOR PAIN 100 g 1 024 2024 Discontinued(M ed list cleanup (will not trigger notification to Pharmacy)) nortriptyline (Pamelor) 10 MG capsule TAKE 2 CAPSULES BY MOUTH EVERY DAY AT BEDTIME (TAKE 1 CAPSULE AT BEDTIME FOR 7 DAYS FOR 1 WK, THEN INCREASE TO 2 CAPSULES AT BEDTIME) 024 2024 Discontinued(M ed list cleanup (will not trigger notification to Pharmacy)) losartan (Cozaar) 50 MG tablet TAKE 1 TABLET BY MOUTH EVERY MORNING 90 tablet 1 024 2024 Discontinued Active Problems Problem Noted Date Diagnosed Date Low testosterone in male 02/05/2024 Overview (02/05/2024): Lab Results Component Value Date TESTTOTAL 118 (A) 12/09/2023 TESTTOTAL 148 (A) 11/14/2023 Associated with fatigue, decreased sex drive, erectile dysfunction Referral to Urology - initial consult Feb 2024 Healthcare maintenance 02/05/2024 Overview (02/05/2024): Colonoscopy: referral to GI placed 02/03/24 Axillary hidradenitis suppurativa 07/29/2023 Assessment & Plan (07/29/2023 1:04 PM EDT): Maintain area dry and clean Avoid manipulation and use of any products Maintain area dry and clean 3 months of doxycycline and ibuprofen with full stomach as needed Bilateral cataracts 06/10/2022 Assessment & Plan (05/08/2023 3:01 PM EST): Following with [facility] Dysphagia 06/10/2022 Hypercholesterolemia 06/10/2022 Lacunar infarction 06/10/2022 Assessment & Plan (07/16/2022 5:00 PM EDT): -Hx of CVA and PVCs, wants to get back into physical activity, but was told by packaging engineer had to go slow. Referral to PT to assist with safe return to physical activity. Migraine without aura, not refractory 06/10/2022 Overview (11/02/2023): -Migraines >2x/week. Describes as unilateral, pounding, and associated with light sensitivity -Per chart review, appears symptoms had improved when using CPAP machine, but have worsened since no longer using. Has CPAP at home using 2x/week, encouraged use nightly -Triptans contraindicated given history of lacunar infarct -Following with Neuro - Dr. Winston Frederick -Jan 2023: PA for Ubrelvy approved (up to 16 tabs/month) Assessment & Plan (11/02/2023 4:46 PM EDT): Currently prescribed nortriptyline 20mg nightly through Neuro, although experiencing some med SE. Reports feeling foggy with med. Encouraged to schedule Neuro follow up to further discuss. PVC's (premature ventricular contractions) 06/10 Renal cyst 06/10/2022 Vitamin D deficiency 06/10/2014 Type 2 diabetes mellitus 05/15/2012 Overview (02/05/2024): Lab Results Component Value Date HGBA1C 9.8 (A) 02/03/2024 HGBA1C 9.2 (H) 10/19/2023 HGBA1C 9.6 (A) 05/06/2023 Lab Results Component Value Date TRIG 292 (H) 10/19/2023 CHOL 167 10/19/2023 LDLCHOLCAL 78 10/19/2023 HDL 31 (L) 10/19/2023 Microalbumin: Lab Results Component Value Date MICROALBCREU 20.1 10/19/2023 OPH: Following with [facility] ACEi/ARB: yes Statin: yes ASCVD: >20% Medications: Metformin 1000mg BID Mounjaro 7.5mg subcutaneous weekly Lantus 17 units subcutaneous QAM (has at home, but reports not using very consistently) SS Novolog available, but reports does not use very consistently. Lifestyle: Encouraged regular movement and aerobic exercise for improved glycemic control Encouraged daily foot checks Encouraged lean protein snacks and to avoid foods high in sugar and simple carbohydrates Treatment Goals: A1c goal: <7% FBG goal: <130 2 hour post prandial goal: <180 Assessment & Plan (02/05/2024 7:50 PM EDT): A1c above goal Plan to increase Mounjaro to 7.5mg subcutaneous weekly Handout provided re: carb counting. If going to snack before bed, plan for low- carb snack Assessment & Plan (11/02/2023 4:46 PM EDT): Reports improvement in FBG readings, will repeat A1c in 3 months Assessment & Plan (05/08/2023 3:01 PM EST): Interested in consideration of switching Trulicity to Mounjaro. Will discuss with pharmacy, then initiate if eligible. Assessment & Plan (11/25/2022 9:48 PM EDT): Reports improvement of BG readings with increased dose of Trulicity. Shared decision making to continue with current regimen for the time being and plan to increase lifestyle interventions. Obstructive sleep apnea syndrome 10/26/2011 Overview (10/26/2022): -08/17/22: Sleep study. Diagnosed with severe sleep apnea. -CPAP machine ordered -Referral to sleep medicine 06/11/22 Assessment & Plan (11/25/2022 9:49 PM EDT): Encouraged to follow up with Sleep Medicine specialists regarding lesser/no mask CPAP machine options Assessment & Plan (06/11/2022 2:24 PM EST): -Repeat sleep study ordered 06/11/22 Essential hypertension 09/01/2011 Overview (06/11/2022): -Following with Cardiology - Dr. Son -Reports readings well controlled at home <140/90 mmHg -Continue with following med regimen: ?? Carvedilol 6.25mg BID ?? Chlorthalidone 25mg daily ?? Losartan 50mg daily ED precautions reviewed Assessment & Plan (02/05/2024 7:57 PM EDT): -BP elevated in office, although reports well controlled at home -Cont following with cards, encourage low salt diet Assessment & Plan (05/08/2023 3:06 PM EST): -BP elevated in office, although reports well controlled at home -Cont following with cards, encourage low salt diet Soft tissue lesion of shoulder region 09/01/2011 Resolved Problems Problem Noted Date Diagnosed Date Resolved Date Uncontrolled type 2 diabetes mellitus with hyperglycemia 06/11/2022 11/02/2023 Hypertensive disorder 06/11/20222022 Hyperlipidemia with target l ow density lipoprotein (LDL) cholesterol less than 100 mg/dL 05/15/2012 02/05/2024 Encounters Date Type Department Care Team Description 05/17/2024 Refill [facility] [address] [place] [address] Radha Byrne FNP 05/11/2024 Telephone [facility] [address] [place] [address] Maria Elena Henriquez, MargotD 05/01/2024 Travel 05/01/2024 Telephone [facility] [address] [place], [place] [phone] Radha Byrne FNP April04/30/2024 Refill [facility] [address] [place] [address] Radha Byrne FNP 04/18/2024 Refill [facility] [address] [place] [address] Radha Byrne FNP 03/16/2024 Refill [facility] [address] [place] [address] Radha Byrne FNP Type 2 diabetes mellitus treated with insulin ([facility]) (Primary Dx); Type 2 diabetes mellitus with hyperglycemia, unspecified whether terminal makeup operator insulin use ([facility]) 02/22/2024 Telephone [facility] [address] [place] [address] Radha Byrne FNP TC: Supplement Review from Last 3 Months Immunizations Name Administration Dates Next Due Hep B, adult 06/02/2001,12/19/2000,11/18/2000 Influenza injectable quadriv alent preservative free 02/02/2023,01/06/2022,05/04/2021,03/03,06/22/2019 Influenza, IIV3, injectable 12/20/2013 Influenza, Split (incl. sam fied surface antigen) 12/28/2012,05/15/2012 Influenza, seasonal, injecta ble, preservative free 01/09/2024 MMR 12/19/2000,11/18/2000 Pneumococcal Conjugate PCV 20 10/25/2022 Pneumococcal Polysaccharide PPSV23 09/27/2016, TD (adult), 2 Lf tetanus tox oid, preservative free, adsorbed 01/31/2009,04/08/1999 Td (adult), 5 Lf tetanus tox oid, preservative free, adsorbed 05/07/2015 Tdap 11/04/2014 Zoster, Recombinant 12/11/2020,08/08/2020 Social History Tobacco Use Types Packs/Day Years Used Date Smoking Tobacco: Never Passive Smoke Exposure: Never Smokeless Tobacco: Never Tobacco Cessation:Counseling Given: Not Answered Alcohol Use Standard Drinks/Week Comments Never 0 [...] Orientation Straight 02/08/2022 10 :15 AM EDT Last Filed Vital Signs Vital Sign Reading Time Taken Comments Blood Pressure 144/88 02/03/2024 10:41 AM EDT Pulse 62 02/03/2024 10:40 AM EDT Temperature 36.1 ??C (97 ??F) 02/03/2024 10:40 AM EDT Respiratory Rate 18 02/03/2024 10:40 AM EDT Oxygen Saturation 98% 02/03/2024 10:40 AM EDT Inhaled Oxygen Concentration - - Weight 101 kg (223 lb 6 oz) 02/03/2024 10:40 AM EDT Height 166.4 cm (5' 5.5 ) 02/03/2024 10:40 AM ED T Body Mass Index 36.61 02/03/2024 10:40 AM EDT Plan of Treatment Upcoming Encounters Date Type Department Care Team (Late st Contact Info) Description 06/01/2024 8:45 AM EST Office Visit [facility] [address] [place] [address] Radha Byrne FNP [address] [place] [address] Health Maintenance Due Date Last Done Comments CT Colonography 1962 Colonoscopy 1962 Colorectal Cancer Screening 1962 FIT DNA/Cologuard 1962 FIT 1962 FOBT 1962 Sigmoidoscopy 1962 Diabetes: Foot Exam 1972 Eye Exam 1972 RSV Patients and Patients Aged 60 years or older (1 - Risk 60-74 years 1-dose series) 2022 COVID-19 Vaccine ( season) 2023 07/03/2020, 06/05/2020 Diabetes: Hemoglobin A1C 05/05/2024 024, 10/19/2023, 05/06/2023, Additional history exists Diabetes: Urine Protein Screening 10/18/2024 10/19/2023, 12/09/2022, 11/17/2021, Additional history exists Lipid Panel 10/18/2024 10/19/2023, 11/11, 11/17/2021, Additional history exists Depression Screening 11/01/2024 11/02/2023, 11/02/19 SDOH Screening 11/01/2024 11/02/2023 Alcohol/Substance Use Screening 02/02/2025 02/03/2024 Tobacco Screening 02/02/2025 02/03/2024 DTaP/Tdap/Td Vaccines (3 - Td or Tdap) 05/07/2025 05/07/2015, 11/04/2014, 01/31/2009, Additional history exists Hepatitis B Vaccines Completed 06/02/2001, 12/19/2000, 11/18/2000 Zoster Vaccines Completed 12/11/2020, 08/08/2020 HIV Screening Completed 11/17/2021 Hepatitis C Screening Completed 11/17/2021 Pneumococcal Vaccine: 50+ Years Completed 10/25/2022, 09/27/2016, 06/28/2007 Influenza Vaccine Completed 01/09/2024, , 01/06/2022, Additional history exists HIB Vaccines Aged Out No longer eligi ble based on patient's age to complete this topic HPV Vaccines Aged Out No longer eligi ble based on patient's age to complete this topic Hepatitis A Vaccines Aged Out No long er eligible based on patient's age to complete this topic IPV Vaccines Aged Out No longer eligi ble based on patient's age to complete this topic Meningococcal Vaccine Aged Out No haley khari eligible based on patient's age to complete this topic RSV under 20 months Aged Out No longe r eligible based on patient's age to complete this topic Rotavirus Vaccines Aged Out No longer eligible based on patient's age to complete this topic Procedures Procedure Name Priority Date/Time Associated Diagnosis Comments POCT GLYCATED HEMOGLOBIN, TOTAL Routine 02/03/2024 11:32 AM EDT Type 2 diabetes mellitus with hyperglycemia, unspecified whether usp insulin use (CMS/HCC) ALBUMIN, RANDOM URINE W/CREATININE Routine 10/19/2023 9:23 AM EDT Uncontrolled type 2 diabetes mellitus with hyperglycemia (CMS/HCC) LIPID PANEL, STANDARD Routine 10/19/2023 9:23 AM EDT Uncontrolled type 2 diabetes mellitus with hyperglycemia (CMS/HCC) ZZZ HISTORICAL HEPATITIS C AB W/REFL TO HCV RNA, QN, PCR Routine 11/17/2021 11:45 AM EDT HIV 1/2 ANTIGEN/ANTIBODY, FOURTH GENERATION W/RFL Routine 11/17/2021 11:45 AM EDT from Last 3 Months or Most Recently Relevant to Health Maintenance Results * (ABNORMAL) POCT HGB A1C (02/03/2024 11:32 AM EDT) Hemoglobin A1C 9.8(A) 4.0 - 6.0 % QC Media Lot # [id number] Lot# Expiration Date Blood 02/03/2024 11:3 2 AM EDT Radha Byrne NICKEL OPERATOR POINT OF CARE TEST ENTER/EDIT ORDERABLES Final Result * Albumin, Random Urine W/Creatinine (10/19/2023 9:23 AM EDT) Creatinine, Urine 179.02 mg/dL [facility] Microalbumin Urine 36.0 mg/L [facility] Microalbum Creatinine Ratio Ur 20.1 <30 ug/mg cr [facility] Comment:Albumin/Creatinine R atio Reference Ranges: Normal: < 30 ug/mg creatinine Microalbuminuria: 30 - 300 ug/mg creatinineClinical Albuminuria: > 300 ug/mg creatinine Urine (Urine, Random) 10/19/2023 9:23 AM EDT 10/19/2023 10:48 AM EDT Felix Brito MD LAB URINE ORDERABLES Final Resul t Performing Organization Address [facility] Co de Phone Number [facility] [address] [place] [phone] * (ABNORMAL) Lipid Panel, Standard (10/19/2023 9:23 AM EDT) Triglycerides 292(H) <150 mg/dL [facility] Comment:Desirable Triglyceri de: less than 150 mg/dLBorderline High Triglyceride 150-199 mg/dLHigh Triglyceride: 200-499 mg/dLVery High Triglyceride: greater than or equal to 5OO mg/dL Cholesterol 167 <200 mg/dL [facility] Comment:Desirable Cholestero l: less than 200 mg/dLBorderline High Cholesterol: 200-239 mg/dLHigh Cholesterol: greater than 239 mg/dL LDL Cholesterol Calculated 78 <100 mg/dL [facility] Comment:Desirable LDL: less than 100 mg/dLNear Optimal/Above Optimal LDL: 110- 129 mg/dLBorderline High LDL: 130-159 mg/dLHigh LDL: 160-189 mg/dLVery High LDL: greater than or equal to 190 mg/dL HDL Cholesterol 31(L) >40 mg/dL [facility] Comment:Desirable HDL: great er than 40 mg/dL Note: This HDL assay may give artificially low results in patients with liver disease. Blood Venous blood specimen / Unknown 10/19/2023 9:23 AM EDT 10/19/2023 10:58 AM EDT Felix Brito MD LAB BLOOD ORDERABLES Final Resul t Performing Organization Address [facility]/ZIP Co de Phone Number [facility] [address] [place] [phone] * HEPATITIS C AB W/REFL TO HCV RNA, QN, PCR (11/17/2021 11:45 AM EDT) HEPATITIS C ANTIBODY NON-REACT MANAN NON-REACT MANAN [facility] INDEX 0.12 <1.00 [facility] Comment: ?? HCV antibody was non-reactive. There is no laboratory ?? evidence of HCV infection. ?? In most cases, no further action is required. However, if recent HCV exposure is suspected, a test for HCV RNA (test code 14569) is suggested. ?? For additional information please refer to http://[employer]/faq/ANN77o2 (This link is being provided for informational/ educational purposes only.) ?? 11/17/2021 11:4 5 AM EDT us Sejal Isabel NP HISTORICAL/NON ORDERABLE LABS F inal Result [facility] [address] [place] [address], * HIV 1/2 ANTIGEN/ANTIBODY,FOURTH GENERATION W/RFL (11/17/2021 11:45 AM EDT) HIV-1/2 ANTIGEN AND ANTIBODIES, 4TH GENERATION W/ REFLEX NON-REACT MANAN NON-REACT MANAN [facility] Comment: HIV-1 antigen and HIV-1/HIV-2 antibodies were not detected. There is no laboratory evidence of HIV infection. ?? PLEASE NOTE: This information has been disclosed to you from records whose confidentiality may be protected by state law. ??If your state requires such protection, then the state law prohibits you from making any further disclosure of the information without the specific written consent of the person to whom it pertains, or as otherwise permitted by law. A general authorization for the release of medical or other information is NOT sufficient for this purpose. ? For additional information please refer to http://education.[employer]/faq/XEM085 (This link is being provided for informational/ educational purposes only.) ? The performance of this assay has not been clinically validated in patients less than 2 years old. ?? 11/17/2021 11:4 5 AM EDT us Sejal Isabel NP LAB BLOOD ORDERABLES Final Resu lt [facility] [address] from Last 3 Months or Most Recently Relevant to Health Maintenance Insurance [facility] Care Teams [employer]orer [employer] Relationship Specialty Start Date End Date Radha Byrne FNP [address], [place] PCP - General Family Medicine 12/02/21 Harshad Son MD [address], [place] Cardiology 02/05/24 Yinka Connell MD [address] [place], [place] Urology 02/05/24
--- OUTSIDE RECORDS SUMMARY | 2024-05-17 11:02 | XMS_ITS | Encounter Summary ---
Author Organization [employer] Address [address] [place] [address] Care Team Providers Care Research Interviewer Name Role Phone Radha Byrne ADRIÁN Primary Care Provider [phone] Harshad Son MD Unavailable [phone] Yinka Connell MD Unavailable [phone] Encounter Details Date Type Department Care Team (Late st Contact Info) Description 05/11/2024 Telephone [facility] [address] [place] [address] Maria Elena Henriquez, PharmD [address] [place] [address] Social History Tobacco Use Types Packs/Day Years [...] AM EDT documented as of this encounter Miscellaneous Notes * Telephone Encounter - Leena Arredondo RN - 05/14/2024 12:07 PM EST TC to patient via [employer]. Patient states he is feeling good . No complaints today. Ptstates he has not gotten lab work completed yet, but is going to go tot the lab to get it done today. * Telephone Encounter - ADRIÁN Brown - 05/14/2024 9:43 AM EST Please call to triage pt and schedule sooner follow up if needed. I see A1c ordered 05/11/24 from pharmacy team, but no result yet. Please advise to come in for lab work if has not done so already. Thank you. Lab Results Component Value Date HGBA1C 9.8 (A) 02/03/2024 documented in this encounter Plan of Treatment Upcoming Encounters Date Type Department Care Team (Late st Contact Info) Description 06/01/2024 8:45 AM EST Office Visit [facility] [address] [place] [address] Radha Byrne FNP [address] [place] [address] documented as of this encounter Visit Diagnoses Not on filedocumented in this encounter Additional Health Concerns Assessment Noted Time PHQ-9 Depression Total Score: 5 11/02/19 24 4:59 PM EDT documented as of this encounter Care Teams Research Interviewer Relationship Specialty Start Date End Date Radha Byrne FNP [address] [place] [address] PCP - General Family Medicine 12/02/21 Harshad Son MD [address] [place] [address] Cardiology 02/05/24 Yinka Connell MD [address] [address] Urology 02/05/24 documented as of this encounter
--- OUTSIDE RECORDS SUMMARY | 2024-05-17 11:02 | XMS_ITS | Encounter Summary ---
Author Organization [employer] Address 75 [facility] 7t [place] [address] Care Team Providers Care Claim Review Medical Director Name Role Phone Radha Byrne Primary Care Provider Harshad Son MD Unavailable [phone] Yinka Connell MD Unavailable [phone] Reason for Visit * Reason Onset Date Comments April recall 05/01/2024 Encounter Details Date Type Department Care Team ([facility] st Contact Info) Description 05/01/2024 Telephone [facility] CHC MED & PEDS [address] [place], [place] [id number] Radha Byrne FNP 505 [place] [address] April recall Social History Tobacco Use Types Packs/Day Years [...] encounter Miscellaneous Notes * Telephone Encounter - Denisha Mayfield [place] - 05/01/2024 4:19 PM EST T/C to pt to schedule April recall follow-up Chronic conditions. Pt agreed to come in on 06/01/2024 at 8:45 am. Pt aware appt location will be [facility]. Mailed reminder letter. documented in this encounter Plan of Treatment Upcoming Encounters Date Type Department Care Team ([facility] Contact Info) Description 06/01/2024 8:45 AM EST Office Visit [facility] MED & PEDS 505 [place] [address] Radha Byrne FNP 505 [place] [address] documented as of this encounter Visit Diagnoses Not on filedocumented in this encounter Additional Health Concerns Assessment Noted Time PHQ-9 Depression Total Score: 5 11/02/19 24 4:59 PM EDT documented as of this encounter Care Teams Claim Review Medical Director Relationship Specialty Start Date End Date Radha Byrne FNP [address] [place] [address] PCP - General Family Medicine 12/02/21 Harshad Son MD [address] [place] [address] Cardiology 02/05/24 Yinka Connell MD 10 [facility] [address] [place] [address] Urology 02/05/24 documented as of this encounter
--- OUTSIDE RECORDS SUMMARY | 2024-05-17 11:02 | XMS_ITS | Encounter Summary ---
Author Organization [facility] [facility] Address 75 [facility] 7t [place] [address] Care Team Providers Care Supervisor Road Administrator Name Role Phone Radha Byrne Primary Care Provider [phone] Harshad Son MD Unavailable [phone] Yinka Connell MD Unavailable [phone] Reason for Visit * Reason Comments Med Refill Encounter Details Date Type Department Care Team (Late st Contact Info) Description 05/17/2024 Refill [facility] MEDICINE 230 [place] [address] Radha Byrne FNP [address] [place], [place] [phone] Social History Tobacco Use Types Packs/Day Years [...] Description 06/01/2024 8:45 AM EST Office Visit [facility] MED & PEDS 505 [place] [address] Radha Byrne FNP 505 [place] [address] documented as of this encounter Visit Diagnoses Not on filedocumented in this encounter Additional Health Concerns Assessment Noted Time PHQ-9 Depression Total Score: 5 11/02/19 24 4:59 PM EDT documented as of this encounter Care Teams Supervisor Road Administrator Relationship Specialty Start Date End Date Radha Byrne FNP [address] [place] [address] PCP - General Family Medicine 12/02/21 Harshad Son MD [address] [place] [address] Cardiology 02/05/24 Yinka Connell MD [address] [place] [address] [place] [address] Urology 02/05/24 documented as of this encounter
--- OUTSIDE RECORDS SUMMARY | 2024-05-17 11:02 | XMS_ITS | Encounter Summary ---
Author Organization [employer] Address [address] [facility] [address] 7t [place] [address] Care Team Providers Care Aviation Project Manager Name Role Phone Radha Byrne ADRIÁN Primary Care Provider [phone] Harshad Son MD Unavailable [phone] Yinka Connell MD Unavailable [phone] Encounter Details Date Type Department Care Team (Latest Contact Info) Description 05/01/2024 Travel Social History Tobacco Use Types Packs/Day Years [...] 8:45 AM EST Office Visit [facility] MED & PEDS 505 [place] [address] Radha Byrne FNP 505 [place] [address] documented as of this encounter Visit Diagnoses Not on filedocumented in this encounter Additional Health Concerns Assessment Noted Time PHQ-9 Depression Total Score: 5 11/02/19 24 4:59 PM EDT documented as of this encounter Care Teams Aviation Project Manager Relationship Specialty Start Date End Date Radha Byrne FNP [address] [place] [address] PCP - General Family Medicine 12/02/21 Harshad Son MD 596 [place] [address] Cardiology 02/05/24 Yinka Conenll MD [address] [place] [address] Urology 02/05/24 documented as of this encounter
--- OUTSIDE RECORDS SUMMARY | 2024-05-17 11:02 | XMS_ITS | Encounter Summary ---
Author Organization [employer] [facility] Address 75 [facility] 7t [place] [address] Care Team Providers Care Top Collar Maker Name Role Phone Radha Byrne Primary Care Provider Harshad Son MD Unavailable [phone] Yinka Connell MD Unavailable [phone] Reason for Referral * Consultation (Routine) - Closed Specialty Diagnoses / Procedures Referred By Contezequiel magana Referred To Contact Urology Diagnoses Low testosterone in male Radha Byrne FNP 230 [place] [address] Phone: tel: fax: Yinka Connell MD [address] [facility] [facility] [address] [place] [address] Phone: tel: fax: Referral ID Status Reason Start Date Expiration Date V isits Requested Visits Authorized [id number] Closed Specialty Services Required 12/16/2023 12/15/2024 1 1 Encounter Details Date Type Department Care Team (Late st Contact Info) Description 12/16/2023 Orders Only [facility] CHC MED & PEDS 505 [place] [address] Radha Byrne FNP 505 [place] [address] Low testosterone in male (Primary Dx) Social History Tobacco Use Types Packs/Day Years Used Date Smoking Tobacco: Never Passive Smoke Exposure: Never Smokeless Tobacco: Never Alcohol Use Standard Drinks/Week Comments Never 0 (1 standard drink = 0.6 oz pur e alcohol) Depression Answer Date Recorded Patient Health Questionnaire-9 [...] Upcoming Encounters Date Type Department Care Team ([facility] st Contact Info) Description 06/01/2024 8:45 AM EST Office Visit [facility] CHC MED & PEDS [address] [place] [address] Radha Byrne, ADRIÁN 505 [place] [address] Scheduled Referrals Name Type Priority Associated Diagnoses Orde r Schedule Referral to Urology Outpatient Referral Routine Low testosterone in male Expected: 12/16/2023 (Approximate), Expires: 12/15/2024 documented as of this encounter Visit Diagnoses Diagnosis Low testosterone in male- Primary documented in this encounter Additional Health Concerns Assessment Noted Time PHQ-9 Depression Total Score: 5 11/02/19 4:59 PM EDT documented as of this encounter Care Teams Top Collar Maker Relationship Specialty Start Date End Date Radha Byrne FNP 230 [place] [address] PCP - General Family Medicine 12/02/21 Harshad Son MD [address] [place] [address] Cardiology 02/05/24 Yinka Connell MD [address] [place] [address] [address] [place] [address] Urology 02/05/24 documented as of this encounter
--- OUTSIDE RECORDS SUMMARY | 2024-05-17 11:02 | XMS_ITS | Encounter Summary ---
Author Organization [employer] [facility] Address 75 [facility] 7t [place] [address] Care Team Providers Care Tray Line Worker Name Role Phone Radha Byrne Primary Care Provider [phone] Harshad Son MD Unavailable [phone] Yinka Connell MD Unavailable [phone] Reason for Visit * Reason Comments Med Refill Encounter Details Date Type Department Care Team (Late st Contact Info) Description 04/18/2024 Refill [facility] MEDICINE 230 [place] [address] Radha Byrne FNP [address] [place], [place] [phone] Social History Tobacco Use Types Packs/Day Years [...] 8:45 AM EST Office Visit [facility] MED & PEDS 505 [place] [address] Radha Byrne FNP 505 [place] [address] documented as of this encounter Visit Diagnoses Not on filedocumented in this encounter Additional Health Concerns Assessment Noted Time PHQ-9 Depression Total Score: 5 11/02/19 24 4:59 PM EDT documented as of this encounter Care Teams Tray Line Worker Relationship Specialty Start Date End Date Radha Byrne FNP [address] [place] [address] PCP - General Family Medicine 12/02/21 Harshad Son MD [address] [place] [address] Cardiology 02/05/24 Yinka Connell MD [address] [place] [address] [place] [address] Urology 02/05/24 documented as of this encounter
--- OUTSIDE RECORDS SUMMARY | 2024-05-17 11:02 | XMS_ITS | Encounter Summary ---
Author Organization [employer] [facility] Address [address] [facility] [address] 7t [place] [address] Care Team Providers Care Horseradish Grinder Name Role Phone Radha Byrne Primary Care Provider [phone] Harshad Son MD Unavailable [phone] Yinka Connell MD Unavailable [phone] Reason for Visit * Reason Comments Med Refill Encounter Details Date Type Department Care Team (Late st Contact Info) Description 03/19/[address] [facility] WALK-IN CENTER [address] [place] [address] Radha Ferraro FNP Social History Tobacco Use Types Packs/Day Years Used Date Smoking Tobacco: Never Passive Smoke Exposure: Never Smokeless Tobacco: Never Alcohol Use Standard Drinks/Week Comments Never 0 (1 standard drink = 0.6 oz pur e alcohol) Depression Answer Date Recorded Patient Health Questionnaire-9 Score 0 10/25/2022 Housing Stability Answer Date Recorded What is your housing situation today? I have aimee khoury 01/25/[address] you li ve. Do you have problems with any of the following? None of the above 01/25/2023 Food Insecurity Answer Date Recorded Within the past 12 months, y ou worried that your food would run out before you got money to buy more: Never True 01/25/2023 Within the past 12 months,th e food you bought just didn't last and you didn't have enough money to get more: Never True Transportation Answer Date Recorded In the past 12 months, has l ack of transportation kept you from medical appts, meetings, work or from getting things needed for daily living? No 01/25/2023 Utilities Answer Date Recorded In the past 12 months, has t he electric, gas, oil or water company threatened to shut off services in your home? No 01/25/2023 Depression Answer Date Recorded Patient Health Questionnaire-2 Score 0 10/25/2022 Sex and Gender Information Value Date Recorded Sex Assigned at Male 02/08/2022 10:15 AM EDT Legal Sex Male 10:15 AM EDT Gender Identity Male 02/08/2022 10:15 AM EDT Sexual Orientation Straight 02/08/2022 10 :15 AM EDT documented as of this encounter Plan of Treatment Upcoming Encounters Date Type Department Care Team (Late st Contact Info) Description 06/01/2024 8:45 AM EST Office Visit [facility] MED & PEDS 505 [place] [address] Radha Byrne FNP 505 [place] [address] documented as of this encounter Visit Diagnoses Not on filedocumented in this encounter Additional Health Concerns Assessment Noted Time PHQ-9 Depression Total Score: 0 10/26/19 23 11:27 AM EDT documented as of this encounter Care Teams Horseradish Grinder Relationship Specialty Start Date End Date Radha Byrne FNP [address] [place] [address] PCP - General Family Medicine 12/02/21 Harshad Son MD 596 [place] [address] Cardiology 02/05/24 Yinka Connell MD [address] [place] [address] Urology 02/05/24 documented as of this encounter
--- OUTSIDE RECORDS SUMMARY | 2024-05-17 11:02 | XMS_ITS | Encounter Summary ---
Author Organization [employer] [facility] Address [address] [place] [address] 7t [place] [address] Care Team Providers Care Color Buffer Name Role Phone Radha Byrne Primary Care Provider [phone] Harshad Son MD Unavailable [phone] Yinka Connell MD Unavailable [phone] Encounter Details Date Type Department Care Team (Late st Contact Info) Description 04/19/2022 Orders Only [facility] CHC MED & PEDS 505 [place] [address] Anabel Ledezma LPN Social History Tobacco Use Types Packs/Day Years Used Date Smoking Tobacco: Never Assessed Sex and Gender Information Value Date Recorded Sex Assigned at Male 02/08/2022 10:15 AM EDT Legal Sex Male 10:15 AM EDT Gender Identity Male 02/08/2022 10:15 AM EDT Sexual Orientation Straight 02/08/2022 10 :15 AM EDT documented as of this encounter Plan of Treatment Upcoming Encounters Date Type Department Care Team (Late st Contact Info) Description 06/01/2024 8:45 AM EST Office Visit [facility] CHC MED & PEDS 505 [place] [address] Radha Byrne FNP 505 [place] [address] documented as of this encounter Visit Diagnoses Not on filedocumented in this encounter Care Teams Color Buffer Relationship Specialty Start Date End Date Radha Byrne FNP 230 [place] [address] PCP - General Family Medicine 12/02/21 Harshad Son MD 596 [place] [address] Cardiology 02/05/24 Yinka Connell MD [address] [address] Urology 02/05/24 documented as of this encounter
[2024-05-17 11:44] LABS: Estimated Average Glucose 186 mg/dL; Hemoglobin A1C 231.6633 umol/L; Hemoglobin A1c % 8.1 % (<6.0); Total Hemoglobin (HGBA1C) 3561.5218 umol/L
== END 2024-05-17 10:59 | disposition home or self-care (01) ==
LOC: HO.LAB 10:58
PROVIDERS: PCP Registered Nurse; Visit Provider Registered Nurse
DX: E11.65 Type 2 diabetes mellitus with hyperglycemia (principal)
CPT/HCPCS: 36415; 83036

== ENCOUNTER 2024-06-11 15:54 | Outpatient (AMB) | payer OTHER, SELFPAY ==
--- NOTE | 2024-06-11 15:56 | MHC.OFFVIS ---
Intake Visit Reasons: Lab Results Intake Note: Patient presents on telehealth for lab results/erectile dysfunction Urology Medication:none Antibiotic Allergy:metformin Blood Thinner: Aspirin PSA: 1.77 TEST: 188 Vaccine Customer Representative Required: No Vaccine Customer Representative Services: Vaccine Customer Representative Present Vaccine Customer Representative Name: SHREE GUEVARAJedCMI Allergies metformin Allergy (Unknown, Verified 06/11/24 16:22) diarrhea sumatriptan Allergy (Unknown, Verified 06/11/24 16:22) headache No Known Allergies [No Known Allergies*] Allergy (Verified 06/11/24 16:22) Kale Inhibitors Allergy (Unknown, Uncoded 06/11/24 16:22) cough Influenza Virus Vaccine Allergy (Unknown, Uncoded 06/11/24 16:22) SOB, chest tightness Medication List - Last Reconciled 06/11/24 by ADRIÁN Manning- aspirin 81 mg PO DAILY carvedilol 6.25 mg PO BID chlorthalidone 25 mg PO DAILY diclofenac sodium 1% topical insulin aspart U-100 (Novolog U-100 Insulin aspart) subcut insulin glargine (Lantus U-100 Insulin) units subcut tirzepatide (Mounjaro) mg subcut tirzepatide (Mounjaro) mg subcut HPI Comments Details: Pasquale is a very pleasant 63-year-old Sinhala-speaking male patient of Dr. Byrne who was accompanied by his during today's telehealth appointment. He has a past medical history of diabetes and hypertension. He is being followed up on today via telehealth for his hypogonadism of note, patient was seen approximately 3 months ago as a new patient for hypogonadism at which time labs were ordered for further assessment evaluation. These labs were reviewed with the patient today as noted and trended below. He continues to report issues obtaining and maintaining his erections. We discussed at length potential causes of hypogonadism as well as further intervention and risks and benefits of these interventions. We discuss trial of Clomid. He otherwise denies any previous trauma. Denies any bothersome urinary issues. He denies urinary urgency, urinary frequency, incontinence, nocturia, hematuria, dysuria, foul smelling urine, changes to urinary stream, flank pain, fever, and or chills. He is happy with his current voiding parameters. We discussed at length potential causes of hypogonadism as well as lifestyle modifications to assist with hypogonadism. We discussed importance of managing diabetes for improvement in overall health and well-being. He otherwise offers no other issues or concerns at this time. PSA:05/05 1.8 Estradiol: 05/05 28 FSH: 05/05 7.3 LH: 05/05 4.2 Prolactin: 05/05 3.6 Total Testosterone: 12/02 148, 12/02 118, 05/05 188 Free Testosterone: 05/05 35.3 SHGB: 05/05 12 A1C: 06/05 8.2 Review of Systems Const All systems reviewed & are unremarkable except as noted in HPI and below Physical Exam Const General: cooperative Orientation/consciousness: patient oriented x3 Resp Effort & Inspection: able to speak in complete sentences Neuro General: patient oriented x3 Psych Speech and movement: Clear speech present Attitude: cooperative Insight: Fair insight present (Psych) Judgement: Fair judgement present (Psych) Telehealth Telehealth Telehealth Platform: Telephone Location of provider rendering services: practice address Location of patient: address on file Patient Identification confirmed using: Name, : Yes Telehealth method: voice only Patient verbally consented to treatment: Yes Patient verbally consented to billing insurance company: Yes Patient informed of any privacy concerns related to visit: Yes Minutes spent on Phone/Video with Pt.: 22 Assessment & Plan Assessment & Plan (1) Erectile dysfunction associated with type 2 diabetes mellitus: Code(s): E11.69 - Type 2 diabetes mellitus with other specified complication; N52.1 - Erectile dysfunction due to diseases classified elsewhere Category: Medical (2) Hypogonadism in male: Code(s): E29.1 - Testicular hypofunction Category: Medical Plan Recent hypogonadism labs reviewed with the patient today; as noted above. We discussed further treatment options and risks and benefits of these treatment options. Start Clomid as discussed and prescribed. Discussed importance of obtaining labs on 8th day status post completion of Clomid. Will obtain LH and testosterone free and total for further assessment evaluation. Otherwise denies any bothersome urinary issues or concerns. He reports be happy with current voiding parameters. Follow-up in 1 month with labs to be completed prior; or sooner with any issues, concerns, and or questions. Orders: Orders Testosterone, Free/Total 1 Week E11.69 - Type 2 diabetes mellitus with other specified complication, E29.1 - Testicular hypofunction, N52.1 - Erectile dysfunction due to diseases classified elsewhere Lutenizing Hormone 1 Week E11.69 - Type 2 diabetes mellitus with other specified complication, E29.1 - Testicular hypofunction, N52.1 - Erectile dysfunction due to diseases classified elsewhere Medications: New clomiphene citrate Take 2 tablets daily for 7 days and complete lab work on day 8 [facility] [address] [id number] 100 mg (2 x 50 mg) PO DAILY 7 days 14 tabs 0RF E29.1 - Testicular hypofunction, R79.89 - Other specified abnormal findings of blood chemistry Patient Instructions: The patient had an opportunity to ask questions regarding the treatment plan. All questions were answered. Physical exam, labs, and imaging were discussed and reviewed in detail. As well as risks, benefits, and discussion of treatment choices. No major barriers to understanding were identified. The patient expressed understanding and agreement with the above treatment plan. The patient was made aware they should contact our office by phone for worsening of their current condition, the appearance of new symptoms, or with any questions or concerns. Compliance is encouraged with any medications and follow up testing that is ordered. It is a privilege to be allowed the opportunity to participate in? your urological care.? Again, if you have any questions or concerns If you have any questions or concerns please do not hesitate to contact me. The office is [phone]. This note is constructed using voice recognition software. While every effort has been made to ensure accuracy turbinated bone grinder errors may have been included. Yours sincerely, VIKTOR Manning Coding Level of Care Code Tele Est Pt Level 4 (10070) Diagnoses Erectile dysfunction associated with type 2 diabetes mellitus E11.69; N52.1 Hypogonadism in male E29.1
--- OUTSIDE RECORDS SUMMARY | 2024-06-11 18:38 | XMS_ITS | Encounter Summary ---
Author Organization [employer] [facility] Address [address] [facility] [address] 7t [place] [address] Care Team Providers Care Beef Pluck Trimmer Name Role Phone Radha Byrne Primary Care Provider [phone] Harshad Son MD Unavailable [phone] Yinka Connell MD Unavailable [phone] Reason for Visit * Reason Comments Med Refill Encounter Details Date Type Department Care Team (Late st Contact Info) Description 03/19/2023 Refill [facility] WALK-IN CENTER [address] [place] [address] Radha Ferraro FNP Social History Tobacco Use [...] as of this encounter Plan of Treatment Not on file documented as of this encounter Visit Diagnoses Not on filedocumented in this encounter Additional Health Concerns Assessment Noted Time PHQ-9 Depression Total Score: 0 10/26/19 23 11:27 AM EDT documented as of this encounter Care Teams Beef Pluck Trimmer Relationship Specialty Start Date End Date Radha Byrne FNP [address] [place] [address] PCP - General Family Medicine 12/02/21 Harshad Son MD [address] [place] [address] Cardiology 02/05/24 Yinka Connell MD [address] [facility] [address] [facility] [address] [place] [address] Urology 02/05/24 documented as of this encounter
--- OUTSIDE RECORDS SUMMARY | 2024-06-11 18:38 | XMS_ITS | Encounter Summary ---
Author Organization [employer] [facility] Address [address] [place] [address] 7t [place] [address] Care Team Providers Care Piano Refinisher Name Role Phone Radha Byrne Primary Care Provider [phone] Harshad Son MD Unavailable [phone] Yinka Connell MD Unavailable [phone] Encounter Details Date Type Department Care Team (Late st Contact Info) Description 04/19/2022 Orders Only [facility] CHC MED & PEDS [address] [place] [address] Anabel Ledezma LPN Social History Tobacco Use [...] on filedocumented in this encounter Care Teams Piano Refinisher Relationship Specialty Start Date End Date Radha Byrne FNP [address] [place] [address] PCP - General Family Medicine 12/02/21 Harshad Son MD [address] [place] [address] Cardiology 02/05/24 Yinka Connell MD [address] [place] [address] Urology 02/05/24 documented as of this encounter
--- OUTSIDE RECORDS SUMMARY | 2024-06-11 18:38 | XMS_ITS | Encounter Summary ---
Author Organization [employer] Address 75 [facility] 7t [place] [address] Care Team Providers Care Direct Support Staff Member Name Role Phone Radha Byrne ADRIÁN Primary Care Provider [phone] Harshad Son MD Unavailable [phone] Yinka Connell MD Unavailable [phone] Encounter Details Date Type Department Care Team (Late st Contact Info) Description 05/11/2024 Telephone [facility] MEDICINE 230 [place] [address] Maria Elena Henriquez, PharmD 230 [place] [address] Social History Tobacco Use Types Packs/Day Years [...] 12:07 PM EST TC to patient via charge authorizer. Patient states he is feeling good . [...] documented in this encounter Plan of Treatment Not on file documented as of this encounter Visit Diagnoses Not on filedocumented in this encounter Additional Health Concerns Assessment Noted Time PHQ-9 Depression Total Score: 5 11/02/19 24 4:59 PM EDT documented as of this encounter Care Teams Direct Support Staff Member Relationship Specialty Start Date End Date Radha Byrne FNP [address] [place] [address] PCP - General Family Medicine 12/02/21 Harshad Son MD [address] [place] [address] Cardiology 02/05/24 Yinka Connell MD [address] [address] Urology 02/05/24 documented as of this encounter
--- OUTSIDE RECORDS SUMMARY | 2024-06-11 18:38 | XMS_ITS | Encounter Summary ---
Author Organization [facility] Address [address] [facility] 7t [place] [address] Care Team Providers Care Metal Pattern Maker Name Role Phone Radha Byrne Primary Care Provider [phone] Harshad Son MD Unavailable Yinka Connell MD Unavailable [phone] Reason for Referral * Consultation (Routine) - Closed Specialty Diagnoses / Procedures Referred By Contezequiel magana Referred To Contact Urology Diagnoses Low testosterone in male Radha Byrne FNP [address] [place] [address] Phone: tel: fax: Yinka Connell MD [address] [facility] [address] [place] [address] Phone: tel: fax: Referral ID Status Reason Start Date Expiration Date V isits Requested Visits Authorized [id number] Closed Specialty Services Required 12/16/2023 12/15/2024 1 1 Encounter Details Date Type Department Care Team (Late st Contact Info) Description 12/16/2023 Orders Only [facility] & PEDS [address] [place] [address] Radha Byrne FNP [address] [place] [address] Low testosterone in male (Primary Dx) Social [...] as of this encounter Plan of Treatment Scheduled Referrals Name Type Priority Associated Diagnoses [...] documented as of this encounter Care Teams Metal Pattern Maker Relationship Specialty Start Date End Date Radha Byrne FNP [address] [place] [address] PCP - General Family Medicine 12/02/21 Harshad Son MD [address] [place] [address] Cardiology 02/05/24 Yinka Connell MD [address] [facility] [address] [place] [address] Urology 02/05/24 documented as of this encounter
--- OUTSIDE RECORDS SUMMARY | 2024-06-11 18:38 | XMS_ITS | Encounter Summary ---
Author Organization [facility] Address [address] [facility] 7t [place] [address] Care Team Providers Care Photographic Restorer Name Role Phone Radha Byrne Primary Care Provider [phone] Harshad Son MD Unavailable [phone] Yinka Connell MD Unavailable [phone] Reason for Visit * Reason Comments Med Refill Encounter Details Date Type Department Care Team (Late st Contact Info) Description 05/17/2024 Refill [facility] MED[facility]INE [address] [place] [address] Radha Byrne FNP [address] [place], [place] [phone] Social History Tobacco Use Types Packs/Day Years [...] documented as of this encounter Care Teams Photographic Restorer Relationship Specialty Start Date End Date Radha Byrne FNP [address] [place] [address] PCP - General Family Medicine 12/02/21 Harshad Son MD [address] [place] [address] Cardiology 02/05/24 Yinka Connell MD [address] [place] [address] Urology 02/05/24 documented as of this encounter
--- OUTSIDE RECORDS SUMMARY | 2024-06-11 18:38 | XMS_ITS | Encounter Summary ---
Author Organization [employer] Address [address] [facility] [address] 7[address] [place] [address] Care Team Providers Care Court Worker Name Role Phone NingRadha sandoval ADRIÁN Primary Care Provider [phone] Harshad Son MD Unavailable [phone] Yinka Connell MD Unavailable [phone] Reason for Visit * Reason Onset Date Comments Chart Prep 05/31/2024 Encounter Details Date Type Department Care Team (Late st Contact Info) Description 05/31/2024 Telephone [facility] MED & PEDS [address] [place] [address] Denisha Pérez MA Chart Prep Social History Tobacco Use Types Packs/Day Years [...] Telephone Encounter - Denisha Mayfield MA - 05/31/2024 7:40 AM EST Chart Prep Labs: done Images: done Vaccines due: yes Referrals: pt schedule 06/07/2024 at 11:00 am Screenings: colonoscopy , eye exam , Foot Exam Overdue care gaps: A1C, Glucose documented in this encounter Plan of Treatment Not on file documented as of this encounter Visit Diagnoses Not on filedocumented in this encounter Additional Health Concerns Assessment Noted Time PHQ-9 Depression Total Score: 5 11/02/19 4:59 PM EDT documented as of this encounter Care Teams Court Worker Relationship Specialty Start Date End Date Radha Byrne FNP [address] [place] [address] PCP - General Family Medicine 12/02/21 Harshad Son MD [address] [place] [address] Cardiology 02/05/24 Yinka Connell MD [address] [facility] [address] [place] [address] Urology 02/05/24 documented as of this encounter
--- OUTSIDE RECORDS SUMMARY | 2024-06-11 18:38 | XMS_ITS | Encounter Summary ---
Author Organization [employer] Address [address] [facility] 7t [place] [address] Care Team Providers Care Canvas Products Sales Representative Name Role Phone Radha Byrne Primary Care Provider Harshad Son MD Unavailable [phone] Yinka Connell MD Unavailable [phone] Reason for Visit * Reason Onset Date Comments No Show 06/01/2024 Encounter Details Date Type Department Care Team ([facility] st Contact Info) Description 06/01/2024 Telephone [facility] MED & PEDS [address] [place], [place] [phone] Radha Byrne FNP [address] [place] [address] No Show Social History Tobacco Use Types Packs/Day Years [...] encounter Miscellaneous Notes * Telephone Encounter - Aolndra Diaz - 06/01/2024 2:02 PM EST No Show 06/01/24 for Chronic Conditions. documented in this encounter Plan of Treatment Not on file documented as of this encounter Visit Diagnoses Not on filedocumented in this encounter Additional Health Concerns Assessment Noted Time PHQ-9 Depression Total Score: 5 11/02/19 24 4:59 PM EDT documented as of this encounter Care Teams Can[employer] Products Sales Representative Relationship Specialty Start Date End Date Radha Byrne FNP [address] [place] [address] PCP - General Family Medicine 12/02/21 Harshad Son MD [address] [place] [address] Cardiology 02/05/24 Yinka Connell MD [address] [place] [address] [address] [place] [address] Urology 02/05/24 documented as of this encounter
--- OUTSIDE RECORDS SUMMARY | 2024-06-11 18:38 | XMS_ITS | Clinical Summary ---
Author Organization [facility] Address [address] [facility] 7t [place] [address] Care Team Providers Care Sack Sewer Machine Name Role Phone Radha Byrne ADRIÁN Primary Care Provider [phone] Harshad Son MD Unavailable Yinka Connell MD Unavailable Allergies Active Allergy Reactions Criticality Noted Date Comments Kale Inhibitors Cough 07/02/2010 Influenza Vaccines Medium 01/17/2014 Other reaction(s): SOB, chest tightness noted in 2013; has received IIV4 p-free doses since w/o issue Medications FREESTYLE LITE test stripIndicatio ns:Type 2 diabetes mellitus treated with insulin ([facility]) TEST BLOOD SUGAR TWICE DAILY 100 strip 11 023 Active carvedilol (Coreg) 6.25 MG tablet TAKE 1 TABLET BY MOUTH TWICE DAILY IN THE MORNING AND IN THE EVENING WITH FOOD 023 Active TRUEplus Lancets 33G miscIndication s:Type 2 diabetes mellitus with hyperglycemia, unspecified whether nursing home insulin use ([facility]) TEST BLOOD SUGAR TWICE DAILY 100 each [...] mouth in the morning. 90 tablet 3 024 Active chlorthalidone (Hygroton) 25 MG tablet TAKE 1 TABLET BY MOUTH EVERY EVENING 90 tablet 3 024 Active Diclofenac Sodium 1 % gelIndications :Paresthesia of bilateral legs Apply to the affected area 3x/day as needed for pain (Yi label please) 150 g 1 024 Active omeprazole (PriLOSEC) 20 MG [...] DAILY NEEDED FOR ALLERGIES 90 tablet 3 024 Active Tirzepatide (Mounjaro) 7.5 MG/0.5ML solution auto-injectorI ndications:Typ e 2 diabetes mellitus with hyperglycemia, unspecified whether ocean transportation intermediary insulin use ([facility]) Inject 7.5 mg under the skin 1 (one) time per week. 0.5 mL 3 024 Active insulin glargine (Lantus) 100 UNIT/ML injectionIndic ations:Type 2 diabetes mellitus treated with insulin ([facility]) INJECT 17 UNITS SUBCUTANEOUSLY EVERY MORNING 10 mL 5 024 Active Insulin Aspart (NovoLOG) 100 UNIT/ML solutionIndica tions:Type 2 diabetes mellitus treated with insulin ([facility]) INJECT SUBCUTANEOUSLY FOUR TIMES DAILY BEFORE MEALS [...] Active cholecalcifero l (D3 2000) 50 MCG (2000 UT) capsule Take 1 capsule by mouth in the morning. Active atorvastatin (Lipitor) 80 MG tablet TAKE 1 TABLET BY MOUTH AT BEDTIME (for cholesterol) 90 tablet 1 025 Active atorvastatin (Lipitor) 80 MG tablet TAKE 1 TABLET BY MOUTH AT BEDTIME ((for cholesterol) 90 tablet 1 024 2024 Discontinued aspirin-acetam inophen-caffei ne (Excedrin Migraine) 250-250-65 MG tablet Take 1 tablet by mouth if needed each day for headaches. 2024 Discontinued(T herapy completed) Active Problems Problem Noted Date Diagnosed Date [...] Plan (05/08/2023 3:01 PM EST): Following with [facility] Dysphagia 06/10/2022 Hypercholesterolemia 06/10/2022 Lacunar infarction 06/10/2022 Assessment & Plan (07/16/2022 5:00 PM EDT): -Hx of CVA and PVCs, wants to get back into physical activity, but was told by edi architect had to go slow. Referral to PT [...] Date MICROALBCREU 20.1 10/19/2023 OPH: [facility] ACEi/ARB: yes Statin: yes ASCVD: >20% Medications: [...] Encounters Date Type Department Care Team Description 06/01/2024 Telephone [facility] [address] [place] [address] Radha Byrne FNP No Show 05/31/2024 Telephone [facility] [address] [place] [address] Denisha Pérez MA Chart Prep 05/17/2024 Orders Only [facility] [address] [place] [address] Radha Byrne FNP 05/17/2024 Refill [facility] [address] [place] [address] Radha Byrne FNP 05/11/2024 Telephone [facility] [address] [place] [address] Maria Elena Henriquez, PharmD 05/01/2024 Travel 05/01/2024 Telephone [facility] [address] [place] [address] Radha Byrne FNP April04/30/2024 Refill [facility] [address] [place] [address] Radha Byrne FNP 04/18/2024 Refill [facility] [address] [place] [address] Radha Byrne FNP 03/16/2024 Refill [facility] [address] [place] [address] Radha Byrne, ADRIÁN Type 2 diabetes mellitus treated with insulin ([facility]) (Primary Dx); Type 2 diabetes mellitus with hyperglycemia, unspecified whether nursing home insulin use ([facility]) from Last 3 Months Immunizations Name Administration [...] 02/03/2024 10:40 AM EDT Plan of Treatment Health Maintenance Due Date Last Done Comments CT Colonography 1962 Colonoscopy 1962 Colorectal Cancer Screening 1962 FIT DNA/Cologuard 1962 FIT 1962 FOBT 1962 Sigmoidoscopy 1962 Diabetes: Foot Exam 1972 Eye Exam 1972 RSV Patients and Patients Aged 60 years or older (1 - Risk 60-74 years 1-dose series) 2022 COVID-19 Vaccine (3 - season) 2023 07/03/2020, 06/05/2020 Diabetes: Hemoglobin A1C 08/14/2024 025, 02/03/2024, 10/19/2023, Additional history exists Diabetes: Urine Protein Screening [...] Procedure Name Priority Date/Time Associated Diagnosis Comments HEMOGLOBIN A1C Routine 05/17/2024 11:08 AM EST ALBUMIN, RANDOM URINE W/CREATININE Routine 10/19/2023 9:23 [...] Relevant to Health Maintenance Results * (ABNORMAL) Hemoglobin A1c (05/17/2024 11:08 AM EST) Hemoglobin A1c 8.1(H) <6.0 % [facility] Comment:Hemoglobin A1C Refer ence Range Adults: 4.8 - 6.0 % Non diabetic: < 6.0 % Goal: < 7.0 %Additional Action Suggested: > 8.0 %Note: Hemoglobin A1c results are invalid for patients with abnormal amounts of HbF. Blood transfusions may impact the HbA1c concentration in the patient sample. Estimated Average Glucose 186 mg/dL [facility] Comment:eAG = Estimated ave rage glucose which is %A1C expressed asaverage glucose, using the formula of the M2S-HkucaprKxlmirg Glucose study (ADAG), Diabetes Care, Vol.31,#8,Nov. 2007 05/17/2024 11:0 8 AM EST 05/17/2024 11:08 AM EST us Radha Byrne PLUCK TRIMMER LAB BLOOD ORDERABLES Final Res ult [facility] [address] [place] [phone] * Albumin, Random Urine W/Creatinine (10/19/2023 9:23 AM EDT) Creatinine, Urine 179.02 mg/dL [facility] Microalbumin Urine 36.0 mg/L [facility] Microalbum Creatinine Ratio Ur 20.1 <30 ug/mg cr [facility] Comment:Albumin/Creatinine R atio Reference Ranges: Normal: < 30 ug/mg creatinine Microalbuminuria: 30 - 300 ug/mg creatinineClinical Albuminuria: > 300 ug/mg creatinine Urine (Urine, Random) 10/19/2023 9:23 AM EDT 10/19/2023 10:48 AM EDT Felix Brito MD LAB URINE ORDERABLES Final Resul t Performing Organization Address City/[facility] Co de Phone Number [facility] [address] [place] [phone] * (ABNORMAL) Lipid Panel, Standard (10/19/2023 9:23 AM EDT) Triglycerides 292(H) <150 mg/dL [facility] Comment:Desirable Triglyceri de: less than 150 mg/dLBorderline High Triglyceride 150-199 mg/dLHigh Triglyceride: 200-499 mg/dLVery High Triglyceride: greater than or equal to 5OO mg/dL Cholesterol 167 <200 mg/dL [facility] Comment:Desirable Cholestero l: less than 200 mg/dLBorderline High Cholesterol: 200-239 mg/dLHigh Cholesterol: greater than 239 mg/dL LDL Cholesterol Calculated 78 <100 mg/dL [facility] Comment:Desirable LDL: less than 100 mg/dLNear Optimal/Above Optimal LDL: 110- 129 mg/dLBorderline High LDL: 130-159 mg/dLHigh LDL: 160-189 mg/dLVery High LDL: greater than or equal to 190 mg/dL HDL Cholesterol 31(L) >40 mg/dL [facility] Comment:Desirable HDL: great er than 40 mg/dL Note: This HDL assay may give artificially low results in patients with liver disease. Blood Venous blood specimen / Unknown 10/19/2023 9:23 AM EDT 10/19/2023 10:58 AM EDT Felix Brito MD LAB BLOOD ORDERABLES Final Resul t [facility] [address] [place] [address] [phone] * HEPATITIS C AB W/REFL TO HCV RNA, QN, PCR (11/17/2021 11:45 AM EDT) HEPATITIS C ANTIBODY NON-REACT MANAN NON-REACT MANAN [facility] INDEX 0.12 <1.00 [facility] Comment: ?? HCV antibody was non-reactive. There is no laboratory ?? evidence of HCV infection. ?? In most cases, no further action is required. However, if recent HCV exposure is suspected, a test for HCV RNA (test code 08936) is suggested. ?? For additional information please refer to http://education.barter.li/faq/OWM67g5 (This link is being provided for informational/ educational purposes only.) ?? 11/17/2021 11:4 5 AM EDT us Sejal Isabel NP HISTORICAL/NON ORDERABLE LABS F inal Result Performing Organization Address City/[facility]/ZIP Co de Phone Number [facility] [address] * HIV 1/2 ANTIGEN/ANTIBODY,FOURTH GENERATION W/RFL (11/17/2021 11:45 AM EDT) HIV-1/2 ANTIGEN AND ANTIBODIES, 4TH GENERATION W/ REFLEX NON-REACT MANAN NON-REACT MANAN [facility] Comment: HIV-1 antigen and HIV-1/HIV-2 [...] ? For additional information please refer to http://Shooger.barter.li/faq/ELK687 (This link is being provided for informational/ educational purposes only.) ? The performance of this assay has not been clinically validated in patients less than 2 years old. ?? 11/17/2021 11:4 5 AM EDT us Sejal Isabel NP LAB BLOOD ORDERABLES Final Resu lt [facility] [address] from Last 3 Months or Most Recently Relevant to [place] [id number] [facility] Care Teams Sack Sewer Machine Relationship Specialty Start Date End Date Radha Byrne FNP [address] [place] [address] PCP - General Family Medicine 12/02/21 Harshad Son MD [address] [place] [address] Cardiology 02/05/24 Yinka Connell MD [address] [place] [address] Urology 02/05/24
--- OUTSIDE RECORDS SUMMARY | 2024-06-11 18:38 | XMS_ITS | Encounter Summary ---
Author Organization [email or web address] Address [address] [facility] [address] [place] [address] Care Team Providers Care Group Segment Consultant Name Role Phone Radha Byrne Primary Care Provider Harshad Son MD Unavailable Yinka Connell MD Unavailable [phone] Encounter Details Date Type Department Care Team (Late st Contact Info) Description 05/17/2024 Orders Only [facility] MED & PEDS [address] [place] [address] Radha Byrne FNP [address] [place] [address] Social History Tobacco Use Types Packs/Day Years [...] on file documented as of this encounter Procedures Procedure Name Priority Date/Time Associated Diagnosis Comments HEMOGLOBIN A1C Routine 05/17/2024 11:08 AM EST documented in this encounter Results * (ABNORMAL) Hemoglobin A1c (05/17/2024 11:08 AM EST) Hemoglobin A1c 8.1(H) <6.0 % [facility] Comment:Hemoglobin A1C Refer ence Range Adults: 4.8 - 6.0 % Non diabetic: < 6.0 % Goal: < 7.0 %Additional Action Suggested: > 8.0 %Note: Hemoglobin A1c results are invalid for patients with abnormal amounts of HbF. Blood transfusions may impact the HbA1c concentration in the patient sample. Estimated Average Glucose 186 mg/dL [facility] Comment:eAG = Estimated ave rage glucose which is %A1C expressed asaverage glucose, using the formula of the Z6U-UrcecgaJggwxxz Glucose study (ADAG), Diabetes Care, Vol.31,#8,2007 05/17/2024 11:0 8 AM EST 05/17/2024 11:08 AM EST Radha SAMPSON LAB BLOOD ORDERABLES Final Res ult [facility] [address] [place] [phone] documented in this encounter Visit Diagnoses Not on filedocumented in this encounter Additional Health Concerns Assessment Noted Time PHQ-9 Depression Total Score: 5 11/02/19 24 4:59 PM EDT documented as of this encounter Care Teams Group Segment Consultant Relationship Specialty Start Date End Date Radha Byrne FNP [address] [place] [address] PCP - General Family Medicine 12/02/21 Harshad Son MD [address] [place] [address] Cardiology 02/05/24 Yinka Connell MD [address] [place] [address] Urology 02/05/24 documented as of this encounter
== END 2024-06-11 16:40 | disposition home or self-care (01) ==
LOC: HO.HUSH 15:54
PROVIDERS: PCP Registered Nurse; Visit Provider Nurse Practitioner Family
DX: E11.69 Type 2 diabetes mellitus with other specified complication (principal); N52.1 Erectile dysfunction due to diseases classified elsewhere; E29.1 Testicular hypofunction
CPT/HCPCS: 99214

== ENCOUNTER → 2024-06-11 15:54 | Outpatient (BNVA) | payer OTHER, SELFPAY | PROVIDERS: PCP Registered Nurse; Visit Provider Nurse Practitioner Family ==

== ENCOUNTER → 2024-10-09 10:55 | Outpatient (REF) | payer OTHER, SELFPAY | LOC: HO.SL 10:55 | PROVIDERS: PCP Registered Nurse; Visit Provider Registered Nurse | DX: G47.33 Obstructive sleep apnea (adult) (pediatric) (principal) | CPT/HCPCS: 95806 ==

== ENCOUNTER → 2024-10-09 21:00 | Outpatient (BNV) | payer OTHER, SELFPAY | PROVIDERS: PCP Registered Nurse; Visit Provider Internal Medicine | DX: G47.33 Obstructive sleep apnea (adult) (pediatric) (principal) | CPT/HCPCS: 95806 ==

== ENCOUNTER 2024-11-28 10:39 | Outpatient (REF) | payer OTHER, SELFPAY ==
[2024-11-28 12:10] LABS: MANUAL DIFF FLAG NO
[2024-11-28 12:20] LABS: Hematocrit 43.3 % (42.0-52.0); Hemoglobin 14.2 g/dl (14.0-18.0); Imm Gran Abs Auto 0.01 X10*3/uL (0.00-0.03); Imm Gran Pct Auto 0.3 % (0.0-0.4); Lymphocytes Absolute Auto 1.6 X10*3/uL (1.2-4.9); Mean Corpuscular HGB Conc 32.8 g/dl (31.0-36.0); Mean Corpuscular Hemoglobin 27.1 pg (27.0-33.0); Mean Corpuscular Volume 82.6 fL (80.0-98.0); NRBC Abs Auto 0.000 X10*3/uL (0.0-0.012); NRBC Pct Auto 0.0 /100WBC (0.0-0.2); Platelet Count 289 X10*3/uL (160-400); Red Blood Count 5.24 X10*6/uL (4.60-5.80); White Blood Count 3.6 X10*3/uL (4.8-10.8)
[2024-11-28 13:00] LABS: Alanine Aminotransferase 31 U/L (0-40); Albumin Level 4.8 g/dL (3.5-5.0); Alkaline Phosphatase 75 U/L (39-117); Aspartate Amino Transferase 25 U/L (5-37); Iron 56 mcg/dL (45-160); Percent Iron Saturation 16 % (15-50); Total Iron Binding Capacity 349 mcg/dL (228-428); Total Protein 7.8 g/dL (6.5-8.0); Unsaturated Iron Binding 293 ug/dL
== END 2024-11-28 10:40 | disposition home or self-care (01) ==
LOC: HO.LAB 10:39
PROVIDERS: PCP Registered Nurse; Visit Provider Nurse Practitioner Family
DX: Z12.11 Encounter for screening for malignant neoplasm of colon (principal); K21.9 Gastro-esophageal reflux disease without esophagitis; K59.03 Drug induced constipation; E11.69 Type 2 diabetes mellitus with other specified complication; N52.1 Erectile dysfunction due to diseases classified elsewhere; D64.9 Anemia, unspecified; Z79.82 Long term (current) use of aspirin; Z79.84 Long term (current) use of oral hypoglycemic drugs
CPT/HCPCS: 36415; 80076; 83540; 85025; 99202

== ENCOUNTER 2024-11-28 10:39 | Outpatient (AMB) | payer OTHER, SELFPAY ==
--- NOTE | 2024-11-28 10:55 | A.OFFVIS_ITS ---
Vital Signs 11/28/24 11:01 Height 5 ft 4.5 in Weight 224 lb BMI 37.9 BP 114/64 Blood Pressure Location Lt brachial Position Sitting Pulse 61 Pulse Oximetry (%) 97 Oxygen Delivery Method Room Air Intake Visit Reasons: Colonoscopy Screening Intake Note: Patient new consult for 2nd Colonoscopy Screening, [place] [facility] [place]. Patient cc: abdominal bloating on and off, GERD come and go, constipation on and off, and tiredness. Denies any other GI issues. Subwarehouse Supervisor Required: No Accompanied by: Spouse Allergies sumatriptan Allergy (Unknown, Verified 11/28/24 10:55) headache No Known Allergies (No Known Allergies*) Allergy (Verified 11/28/24 10:55) Kale Inhibitors Allergy (Unknown, Uncoded 06/11/24 16:22) cough Influenza Virus Vaccine Allergy (Unknown, Uncoded 06/11/24 16:22) SOB, chest tightness Medication List - Last Reconciled 11/28/24 by Colette Centeno CNP aspirin 81 mg PO DAILY atorvastatin (Lipitor) 80 mg PO BEDTIME carvedilol 6.25 mg PO BID chlorthalidone 25 mg PO DAILY clomiphene citrate 100 mg (2 x 50 mg) PO DAILY 7 days diclofenac sodium 1% topical losartan 50 mg PO DAILY metformin 1,000 mg PO BID omeprazole 20 mg PO BID tirzepatide (Mounjaro) 10 mg subcut QWEEK verapamil ER 120 mg PO DAILY HPI HPI Colonoscopy Screening: Details: Patient is a 64-year-old Armenian-speaking male with PMH of diabetes and hypertension. Referred for pre colonoscopy screening. Patient is accompanied by his who is translating during our visit. He reports mild, occasional constipation occurring approximately two to three times per month. Stools during these episodes are described as resembling Zimmerman Scale Type 3, with usual stool consistency being closer to Type 4. Symptoms of constipation improve with dietary changes such as increased oatmeal, fruit, and water intake. Mild bleeding with wiping is noted, which occurs only during periods of constipation and is associated with existing hemorrhoids. He experiences abdominal pain that coincides with constipation and resolves after bowel movement. He also reports daily heartburn, particularly after consuming fried foods. Symptoms are controlled with omeprazole, which he takes twice daily, though occasional breakthrough symptoms do occur. He denies regurgitation or difficulty swallowing. There is no recent history of illness or significant unintentional weight loss. The patient uses multiple medications for comorbid conditions, including diabetes, hypertension, and hyperlipidemia, which may influence GI symptoms. Patient denies: fever/chills, n/v, appetite changes, dysphasia, unintentional wt loss. Social hx: -denies ETOH use -denies recreational drug use -non-smoker - family hx as below -denies personal hx of CA -tolerated anesthesia in the past without difficulty. PFSH Medical History (Updated 11/28/24 @ 12:10 by Colette Centeno CNP) Anemia Mild acid reflux Constipation Colon cancer screening Family History (Updated 11/28/24 @ 11:38 by Colette Centeno CNP) Father Prostate cancer Social History (Updated 11/28/24 @ 11:06 by Kyra Sun) Household Members: Family Alcohol intake: never Patient Tobacco Use Status: Never used Tobacco Use of substances other than those prescribed or required for medical reasons: No Review of Systems Const Reports as per HPI ENT Reports as per HPI Card Reports as per HPI Resp Reports as per HPI GI Reports as per HPI Reports as per HPI Physical Exam Vital Signs: Last Vital Signs Pulse 61 11/28/24 11:01 BP 114/64 11/28/24 11:01 Pulse Ox 97 11/28/24 11:01 Oxygen Delivery Method Room Air 11/28/24 11:01 BMI result Body Mass Index 37.9 Const General: healthy appearing, no acute distress and well developed Nutritional Appearance: average body habitus Orientation/consciousness: patient oriented x3 HEENT Head: Yes normal to inspection, Yes normocephalic and Yes atraumatic Face and sinus: Yes normal facial exam Eyes General: appearance normal, both eyes and all related structures Neck Neck: Yes normal visual inspection Resp Effort & Inspection: normal respiratory effort, able to speak in complete sentences, no tracheal deviation and symmetric chest movement Auscultation: clear to auscultation bilaterally Cardio Jugular venous distension: no JVD Rate: regular rate Rhythm: regular rhythm Heart sounds: S1 normal heart sound present, S2 normal heart sound present, no gallops and no murmurs GI Inspection: Yes normal to inspection, No distended and Yes obesity Palpation (GI): Soft to palpation, not firm, nontender and No hepatosplenomegaly present Auscultation: normoactive bowel sounds Neuro General: patient oriented x3 Gait exam (Neuro): Normal gait present Psych Appearance: grossly normal Mental Status: mental status grossly normal Speech and movement: Normal speech and movement present Affect: normal affect Attitude: cooperative Thought process: Normal thought process present Thought content: Normal thought content present Insight: Good insight present (Psych) Judgement: Good judgement present (Psych) Assessment & Plan Assessment & Plan (1) Colon cancer screening: Comment: 12/04/2013 complete with good prep- normal colonoscopy findings Code(s): Z12.11 - Encounter for screening for malignant neoplasm of colon Category: Medical Plan: Overdue for routine screening; last colonoscopy performed in 2013. Medications: -prescriptions for laxative tablets and MiraLax sent to pharmacy; instructions for Gatorade purchase and clear liquid diet given. -understands diabetes medications and ASA will need to be held days prior to procedure. Nurse to review med holds per protocol. Patient educated on scheduling process, procedure preparation, including avoiding certain foods and ensuring clear liquid intake Advised on necessity for ride post-procedure due to sedation. (2) Constipation: Code(s): K59.00 - Constipation, unspecified Category: Medical Qualifiers: Constipation type: drug induced constipation Qualified Code(s): K59.03 - Drug induced constipation Plan: Occasional episodes of difficulty passing stools, Type 3 on the Zimmerman Stool Scale during episodes, linked with dietary patterns. Additional Testing: None required. Medication Management: Patient encouraged to use a stool softener as needed if dietary interventions alone are insufficient. Rx sent. Lifestyle Recommendations: Increase dietary fiber, fluids, and physical activity. Avoid straining to reduce hemorrhoid exacerbation Follow-Up: Reassess at next visit or sooner if symptoms worsen. (3) Mild acid reflux: Code(s): K21.9 - Gastro-esophageal reflux disease without esophagitis Category: Medical Plan: Daily heartburn; symptoms controlled with omeprazole but exacerbated by dietary triggers (e.g., fried foods). Additional Testing: Upper endoscopy to coincide with colonoscopy Medication Management: - Continue omeprazole 20 mg twice daily -Prescribed famotidine for as-needed use for breakthrough symptoms. Encouraged to take omeprazole as prescribed, taken at least 30-60 minutes before a meal. Education on GERD prevention : -Advised against heavy meals; encouraged small, frequent meals instead of large ones. - Instructed to remain upright for 2?3 hours after eating. - Advised to avoid late-night meals, spicy foods, caffeine, alcohol, known dietary triggers, and tight-fitting clothing. - Emphasis placed on gradual implementation of lifestyle changes to improve adherence and symptom control. (4) Anemia: Code(s): D64.9 - Anemia, unspecified Category: Medical Qualifiers: Anemia type: unspecified type Qualified Code(s): D64.9 - Anemia, unspecified Plan: History of normocytic anemia, no recent labs since October of last year. Additional Testing: Ordered repeat labs including complete blood count, iron panel, and liver function tests. Fasting required for accurate results. Medication Management: None at this time. Lifestyle Recommendations: Continue balanced diet supporting blood health. Follow-Up: Review lab results; if abnormal, follow up appropriately. Plan Follow-up endoscopy or sooner as needed Time: I spent a total of 45 minutes on the date of encounter which includes: Preparing to see the patient (reviewed previous documentation, test results and medical history) Performing a medically appropriate exam and/or evaluation Ordering medications, tests, and procedures Documenting clinical information in the health record Orders: Orders Complete Blood Count Auto Diff Today D64.9 - Anemia, unspecified IRON PROFILE Today D64.9 - Anemia, unspecified Liver Panel Today E11.69 - Type 2 diabetes mellitus with other specified complication, N52.1 - Erectile dysfunction due to diseases classified elsewhere Medications: New bisacodyl (Dulcolax (bisacodyl)) Take four tablets pre colonoscopy instructions 20 mg (4 x 5 mg) PO ONCE 4 tabs 0RF 1 day famotidine Take one tablet as needed for acid reflux 20 mg PO DAILY PRN 90 tabs 0RF GERD polyethylene glycol 3350 (Miralax) per colonoscopy prep instructions 238 grams PO ONCE 238 grams 0RF docusate calcium Take one tablet at bedtime as needed 240 mg PO BEDTIME PRN 90 caps 1RF constipation Coding Level of Care Code New Pt New Pt Level 4 (48440) Patient Type New Diagnoses Colon cancer screening Z12.11 Drug-induced constipation K59.03 Constipation type: drug induced constipation Mild acid reflux K21.9 Anemia, unspecified type D64.9 Anemia type: unspecified type
[2024-11-28 11:01] VITALS: BP 114/64; PULSE 61; O2SAT 97; BMI 37.9
--- OUTSIDE RECORDS SUMMARY | 2024-11-28 11:57 | XMS_ITS | Encounter Summary ---
Author Organization [facility] Address [address] [place] [address] Care Team Providers Care Dolly Driver Name Role Phone Radha Byrne Primary Care Provider [phone] Harshad Son MD Unavailable [phone] Yinka Connell MD Unavailable [phone] Reason for Visit * Reason Comments Med Refill Encounter Details Date Type Department Care Team (Late st Contact Info) Description 03/19/2023 Refill [facility] [address] [place] [address] Radha Ferraro FNP Social History Tobacco Use [...] documented as of this encounter Care Teams Dolly Driver Relationship Specialty Start Date End Date Radha Byrne FNP [address] [place] [address] PCP - General Family Medicine 12/02/21 Harshad Son MD [address] [place] [address] Cardiology 02/05/24 Yinka Connell MD [address] [address] Urology 02/05/24 documented as of this encounter
--- OUTSIDE RECORDS SUMMARY | 2024-11-28 11:57 | XMS_ITS | Clinical Summary ---
Author Organization [facility] Address [address] [address] Phone Care Team Providers Care Promotions Director Name Role Phone Unavailable Primary Care Provider Unavailabl e Social History Tobacco Use Types Packs/Day Years Used Date Smoking Tobacco: Never Assessed Education Answer Date Recorded Are you interested in more education? Not on bushra e 08/06/2022 Are you concerned about learning? Not on file 08/06/2022 No 08/06/2022 No 08/06/2022 Digital Access Answer Date Recorded No 09/04/2022 No 09/04/2022 No 09/04/2022 Reliable internet access at home? Not on file 09/04/2022 Device with a working camera? Not on file Sex and Gender Information Value Date Recorded Sex Assigned at Not on file Legal Sex Male 9:44 PM EDT Gender Identity Not on file Sexual Orientation Not on file Plan of Treatment Health Maintenance Due Date Last Done Comments LIPID PANEL 1962 DEPRESSION SCREENING 1974 SMOKING Hx and SMOKELESS TOBACCO SCREENING 10/29/1975 HEPATITIS C SCREENING 1980 HIV ONE-TIME SCREENING (18-6 5 YEARS) 1980 COLOGUARD 10/29/2007 COLONOSCOPY 10/29/2007 COLORECTAL CANCER SCREENING 10/29/2007 FIT TEST 10/29/2007 FOBT 10/29/2007 SIGMOIDOSCOPY 10/29/2007 VIRTUAL COLONOSCOPY 10/29/2007 ZOSTER VACCINES (1 of 2) 2012 PNEUMOCOCCAL VACCINES (50+ years) (2 of 2 - PCV) 09/27/2017 09/27/2016 COVID-19 VACCINE (3 - 2023-2 5 season) 2023 07/03/2020, 06/05/2020 Adult Td,Tdap Booster 05/07/2025 05/07/2015 RSV VACCINE (1 - 1-dose 75+ series) 2037 HEPATITIS A VACCINES Aged Out No long er eligible based on patient's age to complete this topic HIB VACCINES Aged Out No longer eligi ble based on patient's age to complete this topic MENINGOCOCCAL VACCINES (ACWY) Aged Out No longer eligible based on patient's age to complete this topic MENINGOCOCCAL VACCINES (B) Aged Out N o longer eligible based on patient's age to complete this topic Medical Devices Not on file Insurance MEDICARE PART A & B [facility] MEDICARE PART A & B [facility] MEDICARE PART A & B [facility] MEDICARE PART A & [facility] MEDICARE PART A & B [place] [facility]ICARE PART A & [facility] A & B [facility] [place] [phone] Additional Source Comments The information contained in this document represents components of the legal health record. It is not the complete legal health record.[facility]
== END 2024-11-28 11:49 | disposition home or self-care (01) ==
LOC: HO.HGI 10:39
PROVIDERS: PCP Registered Nurse; Visit Provider Nurse Practitioner Family
DX: K59.03 Drug induced constipation (principal); K21.9 Gastro-esophageal reflux disease without esophagitis; D64.9 Anemia, unspecified; Z12.11 Encounter for screening for malignant neoplasm of colon
CPT/HCPCS: 99204

== ENCOUNTER 2025-03-05 22:04 | Emergency (ER) | payer OTHER, SELFPAY ==
[2025-03-05 22:06] VITALS: BP 170/91; PULSE 80; RESP 18; TEMP 36.7; O2SAT 95; BMI 37.8
--- NOTE | 2025-03-05 22:23 | PC.NURSE ---
20 g IV placed in right AC
[2025-03-05 22:25] LABS: Hematocrit 42.7 % (42.0-52.0); Hemoglobin 14.3 g/dl (14.0-18.0); Imm Gran Abs Auto 0.01 X10*3/uL (0.00-0.03); Imm Gran Pct Auto 0.2 % (0.0-0.4); Lymphocytes Absolute Auto 1.7 X10*3/uL (1.2-4.9); MANUAL DIFF FLAG NO; Mean Corpuscular HGB Conc 33.5 g/dl (31.0-36.0); Mean Corpuscular Hemoglobin 27.1 pg (27.0-33.0); Mean Corpuscular Volume 80.9 fL (80.0-98.0); NRBC Abs Auto 0.000 X10*3/uL (0.0-0.012); NRBC Pct Auto 0.0 /100WBC (0.0-0.2); Platelet Count 303 X10*3/uL (160-400); Red Blood Count 5.28 X10*6/uL (4.60-5.80); White Blood Count 4.7 X10*3/uL (4.8-10.8)
[2025-03-05 22:32] VITALS: BP 195/105
[2025-03-05 22:39] VITALS: BP 163/86; PULSE 72; RESP 18; TEMP 36.7; O2SAT 98
--- OUTSIDE RECORDS SUMMARY | 2025-03-05 22:41 | XMS_ITS | Encounter Summary ---
Author Organization [facility] Address [address] [facility] [address] [place] [address] Phone Care Team Providers Care Buckle Stapler Name Role Phone Unavailable Primary Care Provider Unavailabl e Encounter Details Date Type Department Care Team (Late st Contact Info) Description 02/20/2020 Ancillary Orders [facility] [address] [facility] 3rd Floor, [address] [place], [place] [phone] Jason Mishra MD [address] [place] [id number] [email or web address] Social History Tobacco Use Types Packs/Day Years Used Date Smoking Tobacco: Never Assessed Sex and Gender Information Value Date Recorded Sex Assigned at Not on file Legal Sex Male 9:44 PM EDT Gender Identity Not on file Sexual Orientation Not on file documented as of this encounter Plan of Treatment Not on file documented as of this encounter Visit Diagnoses Not on filedocumented in this encounter Additional Source Comments The information contained in this document represents components of the legal health record. It is not the complete legal health record.[facility]
--- OUTSIDE RECORDS SUMMARY | 2025-03-05 22:41 | XMS_ITS | Encounter Summary ---
Author Organization [facility] Address [address] [facility] [address] [place] [address] Phone Care Team Providers Care Home Economics Extension Worker Name Role Phone Unavailable Primary Care Provider Unavailabl e Encounter Details Date Type Department Care Team (Latest Contact Info) Description 02/20/2020 Ancillary Orders [facility] [address] [place] [address] Jason Mishra MD [address] [place] [address] [email or web address] PVC's (premature ventricular contractions) Social History Tobacco Use Types Packs/Day Years Used Date Smoking Tobacco: Never Assessed Sex and Gender Information Value Date Recorded Sex Assigned at Not on file Legal Sex Male 9:44 PM EDT Gender Identity Not on file Sexual Orientation Not on file documented as of this encounter Plan of Treatment Not on file documented as of this encounter Results * Holter Monitor 48 Hours (02/20/2020 11:16 AM EST) Anatomical Region Laterality Modality Heart Other Narrative 02/20/2020 1:09 PM EST 48-hour monitor: The baseline rhythm is sinus with a minimum heart rate of 48, maximum 106, average 66 bpm. There are no long pauses present. Occasional PACs and brief runs of atrial tachycardia present. There is a mild increase in frequency of PVCs, about 9600 PVCs during the 48 hours, 4800 PVCs per 24 hours. These are mainly isolated PACs with occasional couplets. There is no diary submitted. No patient event markers. Impression: Abnormal 48-hour monitor due to increased frequency PVCs, about 4800 PVCs per 24-hour interval. No diary submitted. No patient event markers. Procedure Note Vinnie Nieto MD - 02/20/2020 48-hour monitor: The baseline rhythm is sinus with a minimum heart rate of48, maximum 106, average 66 bpm. There are no long pauses present.Occasional PACs and brief runs of atrial tachycardia present. There is amild increase in frequency of PVCs, about 9600 PVCs during the 48 hours,4800 PVCs per 24 hours. These are mainly isolated PACs with occasionalcouplets. There is no diary submitted. No patient event markers. Impression: Abnormal 48-hour monitor due to increased frequency PVCs,about 4800 PVCs per 24-hour interval. No diary submitted. No patientevent markers. Jason Mishra MD [facility] Final Result documented in this encounter Visit Diagnoses Diagnosis PVC's (premature ventricular contractions) Other premature beats PVC's (premature ventricular contractions) Other premature beats documented in this encounter Additional Source Comments The information contained in this document represents components of the legal health record. It is not the complete legal health record.[facility]
--- OUTSIDE RECORDS SUMMARY | 2025-03-05 22:41 | XMS_ITS | Encounter Summary ---
Author Organization [facility] Address [address] [place] [address] Care Team Providers Care Customer Service Receptionist Name Role Phone Radha Byrne Primary Care Provider [phone] Harshad Son MD Unavailable [phone] Yinka Connell MD Unavailable [phone] Encounter Details Date Type Department Care Team (Late st Contact Info) Description 03/05/2025 Orders Only GENERIC EXTERNAL DATA DEPARTMENT Provider, Generic External Data Social History Tobacco Use Types Packs/Day Years [...] Date Recorded Patient Health Questionnaire-9 Score 0 10/10/2024 Patient Health Questionnaire-9 Score 0 10/10/2024 Last PHQ-9: Questionnaire Data Not on file 0 10/10/2024 Housing Stability Answer Date Recorded What is [...] Date Recorded Patient Health Questionnaire-2 Score 0 10/10/2024 Internet Access Answer Date Recorded Internet Access [...] Care Team (Late st Contact Info) Description 03/13/2025 10:30 AM EST Office Visit [facility] [address] [place] [address] Radha Byrne FNP [address] [place] [address] documented as of this encounter Procedures Procedure Name Priority Date/Time Associated Diagnosis Comments HOLD LT BLUE - POSSIBLE COAG Routine 03/05/2025 10:18 PM EST CBC WITH AUTO DIFFERENTIAL Routine 03/05/2025 10:17 PM EST documented in this encounter Results * HOLD LT BLUE - POSSIBLE COAG (03/05/2025 10:18 PM EST) Hold Lt Blue - Possible Coag SEE NOTE [facility] Comment:Specimen will be hel d untested for 4 hours. Call Hematologyif testing is desired. 03/05/2025 10:1 8 PM EST 03/05/2025 10:24 PM EST us Generic External Data Provider LAB BLOOD ORDERAB LES Final Result [facility] [address] [place], [place] [phone] * (ABNORMAL) CBC auto differential (03/05/2025 10:17 PM EST) White Blood Count 4.7(L) 4.8 - 10.8 X10*3/uL [facility] Red Blood Count 5.28 4.60 - 5.80 X10*6/uL [facility] Hemoglobin 14.3 14.0 - 18.0 g/dl [facility] Hematocrit 42.7 42.0 - 52.0 % [facility] Mean Corpuscular Volume 80.9 80.0 - 98.0 fL [facility] Mean Corpuscular Hemoglobin 27.1 27.0 - 33.0 pg [facility] Mean Corpuscular HGB Conc 33.5 31.0 - 36.0 g/dl [facility] Red Cell Distribution Width 12.8 11.0 - 16.0 % [facility] Platelet Count 303 160 - 400 X10*3/uL [facility] Mean Platelet Volume 10.1 9.4 - 12.4 fL [facility] Neutrophils Percent Auto 51.3 45 - 73 % [facility] Imm Gran Pct Auto 0.2 0.0 - 0.4 % [facility] Lymphocytes Percent Auto 35.8 20 - 40 % [facility] Monocytes Percent Auto 10.2 2 - 11 % [facility] Eosinophils Percent Auto 2.1 0 - 4 % [facility] Basophils Percent Auto 0.4 0 - 2 % [facility] NRBC Pct Auto 0.0 0.0 - 0.2 /100WBC [facility] Neutrophils Absolute Auto 2.4 2.0 - 8.3 x10*3/uL [facility] Imm Gran Abs Auto 0.01 0.00 - 0.03 X10*3/uL [facility] Lymphocytes Absolute Auto 1.7 1.2 - 4.9 X10*3/uL [facility] Monocytes Absolute Auto 0.5 0.1 - 1.2 X10*3/uL [facility] Eosinophils Absolute Auto 0.1 0.0 - 0.4 X10*3/uL [facility] Basophils Absolute Auto 0.0 0.0 - 0.2 X10*3/uL [facility] NRBC Abs Auto 0.000 0.0 - 0.012 X10*3/uL [facility] 03/05/2025 10:1 7 PM EST 03/05/2025 10:23 PM EST us Generic External Data Provider LAB BLOOD ORDERAB LES Final Result [facility] [address] [place] [address] [phone] documented in this encounter Visit Diagnoses Not on filedocumented in this encounter Additional Health Concerns Assessment Noted Time PHQ-9 Depression Total Score: 0 10/11/19 25 12:10 PM EDT documented as of this encounter Care Teams Customer Service Receptionist Relationship Specialty Start Date End Date Radha Byrne FNP [address] [place] [address] PCP - General Family Medicine 12/02/21 Harshad Son MD [address] [place] [address] Cardiology 02/05/24 Yinka Connell MD [address] [place] [address] Urology 02/05/24 documented as of this encounter
--- OUTSIDE RECORDS SUMMARY | 2025-03-05 22:41 | XMS_ITS | Encounter Summary ---
Author Organization [facility] Address [address] [place] [address] [address] [place] [address] Care Team Providers Care Director Account Management Name Role Phone Radha Byrne Primary Care Provider [phone] Harshad Son MD Unavailable [phone] Yinka Connell MD Unavailable [phone] Encounter Details Date Type Department Care Team (Late st Contact Info) Description 04/19/2022 Orders Only [facility] [address] [place] [address] Anabel Ledezma LPN Social History Tobacco Use [...] Description 03/13/2025 10:30 AM EST Office Visit [facility] [address] [place] [address] Radha Byrne FNP [address] [place] [address] documented as of this encounter Visit Diagnoses Not on filedocumented in this encounter Care Teams Director Account Management Relationship Specialty Start Date End Date Radha Byrne FNP [address] [place] [address] PCP - General Family Medicine 12/02/21 Harshad Son MD [address] [place] [address] Cardiology 02/05/24 Yinka Connell MD [address] [facility] [address] Urology 02/05/24 documented as of this encounter
--- OUTSIDE RECORDS SUMMARY | 2025-03-05 22:41 | XMS_ITS | Encounter Summary ---
Author Organization [facility] Address [address] [facility] [address] [place] [phone] Phone Care Team Providers Care Senior Manager Mmcoe Name Role Phone Unavailable Primary Care Provider Unavailabl e Encounter Details Date Type Department Care Team (Late st Contact Info) Description 02/20/2020 Procedure [facility] [address] [place] [address] [place] [address] Social History Tobacco Use Types Packs/Day Years [...] It is not the complete legal health record.[facility]
--- OUTSIDE RECORDS SUMMARY | 2025-03-05 22:41 | XMS_ITS | Encounter Summary ---
Author Organization [employer] Address [address] [place] [address] Care Team Providers Care Director Internal Control Name Role Phone Radha Byrne Primary Care Provider [phone] Harshad Son MD Unavailable [phone] Yinka Connell MD Unavailable [phone] Reason for Visit * Reason Comments Med Refill Encounter Details Date Type Department Care Team (Late st Contact Info) Description 03/19/2023 Refill [facility] [address] [place] [address] Radha Ferraro FNP Social History Tobacco Use [...] Description 03/13/2025 10:30 AM EST Office Visit [facility] [address] [place] [address] Radha Byrne FNP [address] [place] [address] documented as of this encounter Visit Diagnoses Not on filedocumented in this encounter Additional Health Concerns Assessment Noted Time PHQ-9 Depression Total Score: 0 10/26/19 23 11:27 AM EDT documented as of this encounter Care Teams Director Internal Control Relationship Specialty Start Date End Date Radha Byrne FNP [address] [place] [address] PCP - General Family Medicine 12/02/21 Harshad Son MD [address] [place] [address] Cardiology 02/05/24 Yinka Connell MD [address] [place] [id number] Urology 02/05/24 documented as of this encounter
--- OUTSIDE RECORDS SUMMARY | 2025-03-05 22:41 | XMS_ITS | Clinical Summary ---
Author Organization [employer] Address [address] [facility] 7[address] [place] [address] Care Team Providers Care Ms Sql Dba Name Role Phone Radha Byrne Primary Care Provider [phone] Harshad Son MD Unavailable [phone] Yinka Connell MD Unavailable [phone] Allergies Active Allergy Reactions Criticality Noted Date Comments Kale Inhibitors Cough 07/02/2010 Influenza Vaccines Medium 01/17/2014 Other reaction(s): SOB, chest tightness noted in 2013; has received IIV4 p-free doses since w/o issue Medications carvedilol (Coreg) 6.25 MG tablet TAKE 1 TABLET BY MOUTH TWICE DAILY IN THE MORNING AND IN THE EVENING WITH FOOD 05/14/19 23 Active UltiCare Insulin Syringe 31G X 5/16 1 ML misc USE FIVE TIMES DAILY TO INJECT INSULIN FOUR TIMES DAILY 100 each 07/30/19 23 Active Alcohol Swabs (Alcohol Prep) 70 % pads USE DIRECTED FOUR TIMES DAILY 100 each 08/04/19 23 Active Diclofenac Sodium 1 % gelIndications:P aresthesia of bilateral legs Apply to the affected area 3x/day as needed for pain (Lao label please) 150 g 1 10/18/19 24 Active cetirizine (ZyrTEC) 10 MG tablet TAKE 1 TABLET BY MOUTH ONCE DAILY NEEDED FOR ALLERGIES 90 tablet 3 01/31/20 24 Active Aspirin Low Dose 81 MG EC tablet TAKE 1 TABLET BY MOUTH EVERY MORNING 90 tablet 3 04/18/19 25 Active Ascorbic Acid (vitamin C) 1000 MG tablet Take 1 tablet by mouth Once per day. Active cyanocobalamin (Vitamin B-12) 1000 MCG tablet Take 1 tablet by mouth Once per day. Active Anthony Root (ANTHONY PO) Take 750 mg by mouth in the morning. Active folic acid (Folate) 400 MCG tablet Take 1 tablet by mouth Once per day. Active cholecalciferol (D3 2000) 50 MCG (2000 UT) capsule Take 1 capsule by mouth in the morning. Active glucose blood (FREESTYLE LITE) test stripIndications :Type 2 diabetes mellitus treated with insulin ([facility]) TEST BLOOD SUGAR TWICE DAILY 100 strip 06/27/19 Active TRUEplus Lancets 33G miscIndications: Type 2 diabetes mellitus with hyperglycemia, unspecified whether retirement insulin use ([facility]) TEST BLOOD SUGAR TWICE DAILY 100 each 06/27/19 Active Blood Pressure kitIndications:E ssential hypertension Use to check blood pressure once daily (1 hour after taking medication for blood pressure) and if symptomatic 1 kit 07/12/19 25 Active verapamil SR (Calan SR) 120 MG ER tablet TAKE 1 TABLET BY MOUTH EVERY MORNING 90 tablet 3 09/25/19 25 Active topiramate (Topamax) 25 MG tabletIndication s:Migraine without aura, not refractory Take 1 tablet (25 mg) by mouth at bedtime. (Migraine prevention) 90 tablet 1 10/11/19 25 026 Active Ubrogepant 50 MG tabletIndication s:Migraine without aura, not refractory Take 1 tablet (50mg) by mouth at first sign or symptom of a migraine. If symptoms persist or return, may repeat dose after 2 hours. Maximum: 200 mg per 24 hours 16 tablet 3 10/12/19 25 Active chlorthalidone (Hygroton) 25 MG tablet TAKE 1 TABLET BY MOUTH EVERY EVENING 90 tablet 3 10/18/19 25 Active metFORMIN (Glucophage) 1000 MG tablet TAKE 1 TABLET BY MOUTH TWICE DAILY IN THE MORNING AND IN THE EVENING 180 tablet 3 12/08/19 25 Active losartan (Cozaar) 50 MG tablet TAKE 1 TABLET BY MOUTH EVERY MORNING 90 tablet 3 12/08/19 25 Active atorvastatin (Lipitor) 80 MG tablet TAKE 1 TABLET BY MOUTH AT BEDTIME (for cholesterol) 90 tablet 3 12/08/19 25 Active omeprazole (PriLOSEC) [address] capsule TAKE 1 CAPSULE BY MOUTH TWICE DAILY IN THE MORNING AND AT BEDTIME (30-60 MINUTES BEFORE A MEAL AND 1 HOUR BEFORE BEDTIME) 180 capsule 3 01/10/20 Active Mounjaro 10 MG/0.5ML solution auto-injectorInd ications:Type 2 diabetes mellitus with hyperglycemia, unspecified whether retirement insulin use (HCC) INJECT ONE PEN (=10MG) SUBCUTANEOUSLY ONCE A WEEK DIRECTED 2 mL 3 01/17/20 Active Active Problems Problem Noted Date Diagnosed Date Hypogonadism in male 02/05/2024 Overview (07/12/2024): Lab Results Component Value Date TESTTOTAL 118 (A) 12/09/2023 TESTTOTAL 148 (A) 11/14/2023 Associated with fatigue, decreased sex drive, erectile dysfunction Following with [facility] urology as of February 2024 -trial of Clomid, although not covered by insurance Assessment & Plan (10/11/2024 8:49 AM EDT): Plan to follow-up with [facility] coordinator & urology for discussion of additional treatment options/considerations Assessment & Plan (07/12/2024 7:18 PM EDT): Plan to follow-up with urology as scheduled for discussion of additional treatment options/considerations Healthcare maintenance 02/05/2024 Overview (07/12/2024): Colonoscopy: referral to GI placed 02/03/24 Axillary hidradenitis suppurativa 07/29/2023 Assessment & Plan (07/29/2023 1:04 PM EDT): Maintain area dry and clean Avoid manipulation and use of any products Maintain area dry and clean 3 months of doxycycline and ibuprofen with full stomach as needed Bilateral cataracts 06/10/2022 Assessment & Plan (05/08/2023 3:01 PM EST): Following with [facility] Dysphagia 06/10/2022 Hypercholesterolemia 06/10/2022 Lacunar infarction (CMS/HCC) 06/10/2022 Assessment & Plan (07/16/2022 5:00 PM EDT): -Hx of CVA and PVCs, wants to get back into physical activity, but was told by linux network systems administrator had to go slow. Referral to PT to assist with safe return to physical activity. Migraine without aura, not refractory 06/10/2022 Overview (10/11/2024): -Migraines >3x/week. Describes as unilateral, pounding, and associated with light sensitivity -Per chart review, appears symptoms had improved when using CPAP machine, but have worsened since no longer using. Updated CPAP machine pending -Triptans contraindicated given history of lacunar infarct -Following with Neuro - Dr. Winston Frederick -Jan 2023: PA for Ubrelvy approved (up to 16 tabs/month) Assessment & Plan (10/11/2024 8:51 AM EDT): Prevention: start topiramate 25mg nightly. Reviewed med safety and SE Episodic tx: rec APAP over Excedrin d/t risk factors w/ nsaids. However, APAP has not been fully effective. Initiate PA re-submission for Ubrelvy. Assessment & Plan (11/02/2023 4:46 PM EDT): Currently prescribed nortriptyline 20mg nightly through Neuro, although experiencing some med SE. Reports feeling foggy with med. Encouraged to schedule Neuro follow up to further discuss. PVC's (premature ventricular contractions) 06/10 Renal cyst 06/10/2022 Vitamin D deficiency 06/10/2014 Type 2 diabetes mellitus 05/15/2012 Overview (10/11/2024): Lab Results Component Value Date HGBA1C 9.1 (A) 10/10/2024 HGBA1C 8.1 (H) 05/17/2024 HGBA1C 9.8 (A) 02/03/2024 HGBA1C 9.2 (H) 10/19/2023 HGBA1C 9.6 (A) 05/06/2023 HGBA1C 7.5 (H) 08/25/2020 Lab Results Component Value Date TRIG 292 (H) 10/19/2023 CHOL 167 10/19/2023 LDLCHOLCAL 78 10/19/2023 HDL 31 (L) 10/19/2023 Microalbumin: Lab Results Component Value Date MICROALBCREU 20.1 10/19/2023 OPH: Following with [facility] ACEi/ARB: yes Statin: yes ASCVD: >20% Aspirin: yes Medications: Metformin 1000mg BID Mounjaro 10mg subcutaneous weekly Lifestyle: Encouraged regular movement and aerobic exercise for improved glycemic control Encouraged daily foot checks Encouraged lean protein snacks and to avoid foods high in sugar and simple carbohydrates Treatment Goals: A1c goal: <7% FBG goal: <130 2 hour post prandial goal: <180 Assessment & Plan (10/11/2024 8:48 AM EDT): - Plan to dec carb intake. No med adjustments today. F/up 3 mo. Assessment & Plan (07/12/2024 7:17 PM EDT): Plan to discontinue insulin, increase Mounjaro to 10 mg subcutaneous weekly Assessment & Plan (02/05/2024 7:50 PM EDT): [...] interventions. Obstructive sleep apnea syndrome 10/26/2011 Overview (07/12/2024): -08/17/22: Sleep study. Diagnosed with severe sleep apnea. -CPAP machine ordered -Referral to sleep medicine 06/11/22 -Order for home sleep test placed 07/11/2024 Assessment & Plan (10/11/2024 8:49 AM EDT): Results of recent sleep study pending Assessment & Plan (11/25/2022 9:49 PM EDT): Encouraged to follow up with Sleep Medicine specialists regarding lesser/no mask CPAP machine options Assessment & Plan (06/11/2022 2:24 PM EST): -Repeat sleep study ordered 06/11/22 Essential hypertension 09/01/2011 Overview (06/11/2022): -Following with Cardiology - Dr. Son -Reports readings well controlled at home <140/90 mmHg -Continue with following med regimen: Carvedilol 6.25mg BID Chlorthalidone 25mg daily Losartan 50mg daily ED precautions reviewed Assessment & Plan (10/11/2024 8:56 AM EDT): Above goal in office, possibly 2/2 migraine. F/up if home readings above goal. Assessment & Plan (07/12/2024 7:16 PM EDT): Well-controlled, continue with current treatment plan Assessment & Plan (02/05/2024 7:57 PM EDT): [...] Encounters Date Type Department Care Team Description 03/05/2025 Orders Only GENERIC EXTERNAL DATA DEPARTMENT Provider, Generic External Data 01/15/2025 Refill [facility] [address] [place] [address] Radha Byrne FNP Type 2 diabetes mellitus with hyperglycemia, unspecified whether retirement insulin use (HCC) 01/08/2025 Refill [facility] [address] [place] [address] Radha Byrne FNP 12/06/2024 Refill [facility] [address] [place] [address] Radha Byrne FNP from Last 3 Months Immunizations Immunization Administration Dates Next Due Hep B, adult [...] Sign Reading Time Taken Comments Blood Pressure 140/92 10/10/2024 12:05 PM EDT Pulse 65 10/10/2024 12:05 PM EDT Temperature 36.4 C (97.5 F) 10/10/2024 12:05 PM EDT Respiratory Rate 20 10/10/2024 12:05 PM EDT Oxygen Saturation 98% 10/10/2024 12:05 PM EDT Inhaled Oxygen Concentration - - Weight 104 kg (228 lb 9.6 oz) 10/10/2024 12:05 P M EDT Height 163.8 cm (5' 4.5 ) 10/10/2024 12:05 PM ED T Body Mass Index 38.63 10/10/2024 12:05 PM EDT Plan of Treatment Upcoming Encounters Date Type Department Care Team (Late st Contact Info) Description 03/13/2025 10:30 AM EST Office Visit [facility] [address] [place] [address] Radha Byrne, ORTHOTIC AND PROSTHETIC TECHNICIAN [address] [place] [address] Health Maintenance Due Date Last Done Comments CT Colonography 1962 Colonoscopy 1962 Colorectal Cancer Screening 1962 FIT DNA/Cologuard 1962 FIT 1962 FOBT 1962 Sigmoidoscopy 1962 Diabetes: Foot Exam 1972 Eye Exam 1972 Diabetes: Urine Protein Screening 10/18/2024 10/19/2023, 12/09/2022, 11/17/2021, Additional history exists Lipid Panel 10/18/2024 10/19/2023, 08/04/2022, 11/17/2021, Additional history exists COVID-19 Vaccine ( - season) 2024 07/03/2020, 06/05/2020 Influenza Vaccine (#1) 2024 , 02/02/2023, 01/06/2022, Additional history exists Diabetes: Hemoglobin A1C 01/10/2025 025, 05/17/2024, 02/03/2024, Additional history exists DTaP/Tdap/Td Vaccines (3 - Td or Tdap) 05/07/2025 05/07/2015, 11/04/2014, 01/31/2009, Additional history exists Alcohol/Substance Use Screening 10/10/2025 10/10/2024 Depression Screening 10/10/2025 10/10/2024, 10/11/19 Disability Screening 10/10/2025 10/10/2024 SDOH Screening 10/10/2025 10/10/2024 Tobacco Screening 10/10/2025 10/10/2024 RSV Patients and Patients Aged 60 years or older (1 - 1-dose 75+ series) 2037 Hepatitis B Vaccines Completed 06/02/2001, 12/19/2000, 11/18/2000 Zoster Vaccines Completed 12/11/2020, 08/08/2020 HIV Screening Completed 11/17/2021 Hepatitis C Screening Completed 11/17/2021 Pneumococcal Vaccine: 50+ Years Completed 10/25/2022, 09/27/2016, 06/28/2007 HIB Vaccines Aged Out No longer eligi [...] patient's age to complete this topic Meningococcal B Vaccine Aged Out No l onger eligible based on patient's age to complete [...] AUTO DIFFERENTIAL Routine 03/05/2025 10:17 PM EST POCT GLYCATED HEMOGLOBIN, TOTAL Routine 10/10/2024 12:24 PM EDT Type 2 diabetes mellitus with hyperglycemia, unspecified whether retirement insulin use (CMS/HCC) ALBUMIN, RANDOM URINE W/CREATININE [...] Recently Relevant to Health Maintenance Results * HOLD LT BLUE - POSSIBLE COAG (03/05/2025 10:18 PM EST) Hold Lt Blue - Possible Coag SEE NOTE [facility] Comment:Specimen will be hel d untested for 4 hours. Call Hematologyif testing is desired. 03/05/2025 10:1 8 PM EST 03/05/2025 10:24 PM EST us Generic External Data Provider LAB BLOOD ORDERAB LES Final Result [facility] [address] [place] [address] [phone] * (ABNORMAL) CBC auto differential (03/05/2025 10:17 PM EST) Pathologist [facility] White Blood Count 4.7(L) 4.8 - 10.8 X10*3/uL [facility] Red Blood Count 5.28 4.60 - 5.80 X10*6/uL [facility] Hemoglobin 14.3 14.0 - 18.0 g/dl [facility] Hematocrit 42.7 42.0 - 52.0 % [facility] Mean Corpuscular Volume 80.9 80.0 - 98.0 fL [facility] Mean Corpuscular Hemoglobin 27.1 27.0 - 33.0 pg [facility] Mean Corpuscular HGB Conc 33.5 31.0 - 36.0 g/dl [facility] Red Cell Distribution Width 12.8 11.0 - 16.0 % [facility] Platelet Count 303 160 - 400 X10*3/uL [facility] Mean Platelet Volume 10.1 9.4 - 12.4 fL [facility] Neutrophils Percent Auto 51.3 45 - 73 % [facility] Imm Gran Pct Auto 0.2 0.0 - 0.4 % [facility] Lymphocytes Percent Auto 35.8 20 - 40 % [facility] Monocytes Percent Auto 10.2 2 - 11 % [facility] Eosinophils Percent Auto 2.1 0 - 4 % [facility] Basophils Percent Auto 0.4 0 - 2 % [facility] NRBC Pct Auto 0.0 0.0 - 0.2 /100WBC [facility] Neutrophils Absolute Auto 2.4 2.0 - 8.3 x10*3/uL [facility] Imm Gran Abs Auto 0.01 0.00 - 0.03 X10*3/uL [facility] Lymphocytes Absolute Auto 1.7 1.2 - 4.9 X10*3/uL [facility] Monocytes Absolute Auto 0.5 0.1 - 1.2 X10*3/uL [facility] Eosinophils Absolute Auto 0.1 0.0 - 0.4 X10*3/uL [facility] Basophils Absolute Auto 0.0 0.0 - 0.2 X10*3/uL [facility] NRBC Abs Auto 0.000 0.0 - 0.012 X10*3/uL [facility] 03/05/2025 10:1 7 PM EST 03/05/2025 10:23 PM EST us Generic External Data Provider LAB BLOOD ORDERAB LES Final Result [facility] [address] [place] [phone] * (ABNORMAL) POCT HGB A1C (10/10/2024 12:24 PM EDT) Hemoglobin A1C 9.1(A) 4.0 - 5.7 % QC Media Lot # [id number] Lot# Expiration Date Blood 10/10/2024 12:2 4 PM EDT us Radha Byrne ORTHOTIC AND PROSTHETIC TECHNICIAN POINT OF CARE TEST ENTER/EDIT ORDERABLES Final Result * Albumin, Random Urine W/Creatinine (10/19/2023 9:23 AM EDT) Creatinine, Urine 179.02 mg/dL [facility] Microalbumin Urine 36.0 mg/L H [facility] Microalbum Creatinine Ratio Ur 20.1 <30 ug/mg cr [facility] Comment:Albumin/Creatinine R atio Reference Ranges: Normal: < 30 ug/mg creatinine Microalbuminuria: 30 - 300 ug/mg creatinineClinical Albuminuria: > 300 ug/mg creatinine Urine (Urine, Random) 10/19/2023 9:23 AM EDT 10/19/2023 10:48 AM EDT us Felix Brito MD LAB URINE ORDERABLES Final Resul t [facility] [address] [place] [phone] * (ABNORMAL) Lipid Panel, Standard (10/19/2023 9:23 AM EDT) Triglycerides 292(H) <150 mg/dL [facility] Comment:Desirable Triglyceri de: less than 150 mg/dLBorderline High Triglyceride 150-199 mg/dLHigh Triglyceride: 200-499 mg/dLVery High Triglyceride: greater than or equal to 5OO mg/dL Cholesterol 167 <200 mg/dL [facility] Comment:Desirable Cholestero l: less than 200 mg/dLBorderline High Cholesterol: 200-239 mg/dLHigh Cholesterol: greater than 239 mg/dL LDL Cholesterol Calculated 78 <100 mg/dL [facility] Comment:Desirable LDL: less than 100 mg/dLNear Optimal/Above Optimal LDL: 110- 129 mg/dLBorderline High LDL: 130-159 mg/dLHigh LDL: 160-189 mg/dLVery High LDL: greater than or equal to 190 mg/dL HDL Cholesterol 31(L) >40 mg/dL [facility] Comment:Desirable HDL: great er than 40 mg/dL Note: This HDL assay may give artificially low results in patients with liver disease. Blood Venous blood specimen / Unknown 10/19/2023 9:23 AM EDT 10/19/2023 10:58 AM EDT Felix Brito MD LAB BLOOD ORDERABLES Final Resul t Performing Organization Address City/[facility]/ZIP Co de Phone Number [facility] [address] [place] [address] [phone] * HEPATITIS C AB W/REFL TO HCV RNA, QN, PCR (11/17/2021 11:45 AM EDT) HEPATITIS C ANTIBODY NON-REACT MANAN NON-REACT MANAN [facility] INDEX 0.12 <1.00 [facility] Comment: HCV antibody was non-reactive. There is no laboratory evidence of HCV infection. In most cases, no further action is required. However, if recent HCV exposure is suspected, a test for HCV RNA (test code 58551) is suggested. For additional information please refer to http://education.[employer]/faq/EKQ11v9 (This link is being provided for informational/ educational purposes only.) 11/17/2021 11:4 5 AM EDT Sejal Isabel NP HISTORICAL/NON ORDERABLE LABS F inal Result Performing Organization Address City/[facility] Co de Phone Number [facility] [address] * HIV 1/2 ANTIGEN/ANTIBODY,FOURTH GENERATION W/RFL (11/17/2021 11:45 AM EDT) HIV-1/2 ANTIGEN AND ANTIBODIES, 4TH GENERATION W/ REFLEX NON-REACT MANAN NON-REACT MANAN [facility] Comment: HIV-1 antigen and HIV-1/HIV-2 antibodies were not detected. There is no laboratory evidence of HIV infection. PLEASE NOTE: This information has been disclosed to you from records whose confidentiality may be protected by state law. If your state requires such protection, then the state law prohibits you from making any further disclosure of the information without the specific written consent of the person to whom it pertains, or as otherwise permitted by law. A general authorization for the release of medical or other information is NOT sufficient for this purpose. For additional information please refer to http://education.[employer]/faq/TFD577 (This link is being provided for informational/ educational purposes only.) The performance of this assay has not been clinically validated in patients less than 2 years old. 11/17/2021 11:4 5 AM EDT us Sejal Isabel [employer] LAB BLOOD ORDERABLES Final Resu lt [facility] [address] from Last 3 Months or Most Recently Relevant to Health Maintenance Insurance [facility] < 65 Care Teams Ms Sql Dba Relationship Specialty Start Date End Date Radha Byrne FNP [address] [place] [address] PCP - General Family Medicine 12/02/21 Harshad Son MD [address] [place] [address] Cardiology 02/05/24 Yinka Connell MD [address] [place] [phone] Urology 02/05/24
--- OUTSIDE RECORDS SUMMARY | 2025-03-05 22:41 | XMS_ITS | Encounter Summary ---
Author Organization [employer] Address [address] [facility] [address] [place] [address] Care Team Providers Care Threat Analyst Name Role Phone Radha Byrne Primary Care Provider [phone] Harshad Son MD Unavailable Yinka Connell MD Unavailable [phone] Reason for Referral * Consultation (Routine) - Closed Specialty Diagnoses / Procedures Referred By Contezequiel magana Referred To Contact Urology Diagnoses Low testosterone in male Radha Byrne FNP [address] [place] [address] Phone: tel: fax: Yinka Connell MD [address] [place] [address] Phone: tel: fax: Referral ID Status Reason Start Date Expiration Date V isits Requested Visits Authorized [id number] Closed Specialty Services Required 12/16/2023 12/15/2024 1 1 Encounter Details Date Type Department Care Team (Late st Contact Info) Description 12/16/2023 Orders Only [facility] [address] [place] [address] Radha Byrne FNP [address] [place] [address] Low testosterone in male (Primary Dx) Social [...] Description 03/13/2025 10:30 AM EST Office Visit [facility] [address] [place] [address] Radha Byrne, ADRIÁN [address] [place] [address] Scheduled Referrals Name Type Priority Associated Diagnoses [...] documented as of this encounter Care Teams Threat Analyst Relationship Specialty Start Date End Date Radha Byrne FNP [address] [place] [address] PCP - General Family Medicine 12/02/21 Harshad Son MD [address] [place] [phone] Cardiology 02/05/24 Yinka Connell MD [address] [place] [phone] Urology 02/05/24 documented as of this encounter
--- OUTSIDE RECORDS SUMMARY | 2025-03-05 22:41 | XMS_ITS | Clinical Summary ---
Author Organization [facility] Address [address] [address] Phone Care Team Providers Care Group Director Name Role Phone Unavailable Primary Care [...] (2 of 2 - PCV) 09/27/2017 09/27/2016 INFLUENZA VACCINE (#1) 2024 0, 06/22/2019 COVID-19 VACCINE (3 - 2024-2 6 season) 2024 07/03/2020, 06/05/2020 Adult Td,Tdap Booster 05/07/2025 05/07/2015 [...] file Insurance MEDICARE PART A & B [facility] [place] [address] [facility]ICARE [facility] B [place] MED[place] PART A & B HEALTH MEDICARE PART A & B Member Subscriber Plan / Payer (Ef fective 2015-Present) Name:Pasquale Pinto Member ID:[id number] Relation to Subscriber:Self Name:Pasquale Pinto Subscriber ID:[id number] Payer ID:[id number] Group ID:Not on file Type:Medicare Address: [facility] [employer] [facility] [address] [place] [phone] [facility] MEDICARE PART A & B Member Subscriber Plan / Payer (Ef fective 2015-Present) Name:Pasquale Pinto Member ID:[id number] Relation to Subscriber:Self Name:Pasquale Pinto Subscriber ID:[id number] Payer ID:[id number] Group ID:Not on file Type:Medicare Address: [facility] [employer] [facility] [address] [place] [phone] [facility] Additional Source Comments The information contained in this document represents components of the legal health record. It is not the complete legal health record.[facility]
--- NOTE | 2025-03-05 22:42 | PC.NURSE ---
Pt coming in to the ED with CC of migraine x 1 week and left sided weakness and burning x 2 hrs. Pt reports blurry vision. Strength equal in all extremities, pupils equally round and reactive. Denies dizziness, no slurred speech or facial droop noted.
[2025-03-05 22:43] LABS: Alanine Aminotransferase 84 U/L (0-40); Albumin Level 4.6 g/dL (3.5-5.0); Alkaline Phosphatase 90 U/L (39-117); Anion Gap 15 (12-20); Aspartate Amino Transferase 39 U/L (5-37); Blood Urea Nitrogen 17 mg/dL (9-16); Calcium 9.7 mg/dL (8.4-10.2); Carbon Dioxide 24 mmol/L (22-29); Chloride 105 mmol/L (96-108); Creatinine Clr Calc Pharmacy 67.1; Estimated Glomerular Filt Rate 58; Magnesium 1.4 mg/dL (1.6-2.6); Potassium 3.9 mmol/L (3.3-5.1); Sodium 140 mmol/L (135-145); Total Protein 7.9 g/dL (6.5-8.0)
[2025-03-05] MEDS: Magnesium Sulfate/H2O 2 GM/50 ML PIGGYBACK IV (22:51)
[2025-03-05 23:01] LABS: Resp Syncy Virus RNA Qual PCR NEGATIVE (Negative); SARS COV2 PCR INHOUSE NEGATIVE (Negative)
--- NOTE | 2025-03-05 23:08 | ED_ITS ---
HPI - Neuro Symptoms/Deficit General Chief Complaint: Neuro Symptoms/Deficit Stated Complaint: Headache Time Seen by Provider: 03/05/25 22:16 Source: patient Limitations: language barrier History of Present Illness ED Provider: Aditi Holguin PA-C HPI Narrative: 64-year-old male with a history of migraine, hypertension, hyperlipidemia, diabetes with suspect peripheral neuropathy, prior TIAs without residual deficits, GERD, who presents with migraine type headache x1 week. Pain is right-sided retro-orbital, with the associated dizziness, nausea, photophobia and phonophobia. Patient has a blurred vision at baseline, he explains that he receives ?injections into the eyeballs?. Patient also complains of bilateral burning sensation of the distal lower extremities, he states he has this frequently. Patient complains of neck pain or weakness of extremities. Patient denies recent illness or cough cold symptoms no fevers. Related Data Home Medications ?Medication ?Instructions ?Recorded ?Confirmed aspirin 81 mg tablet,delayed 81 mg PO DAILY 02/14/24 1 release carvedilol 6.25 mg tablet 6.25 mg PO BID 02/14/2401/10 chlorthalidone 25 mg tablet 25 mg PO DAILY 02/14/24 diclofenac sodium 1 % topical gel 1 ea topical DAILY 1 04/15/23 02/05/25 atorvastatin 80 mg tablet (Lipitor) 80 mg PO BEDTIME 0 11/28/24 02/05/25 losartan 50 mg tablet 50 mg PO DAILY 11/28/2401/10 metformin 1,000 mg tablet 1,000 mg PO BID 11/28/24 omeprazole 20 mg capsule,delayed 20 mg PO BID 11/28/24 02/05/25 release tirzepatide 5 mg/0.5 mL 10 mg subcut QWEEK 11/28/24 02/05/25 subcutaneous pen injector (Mara) verapamil 120 mg 24 hr 120 mg PO DAILY 11/28/24 capsule,extended release Previous Rx's ?Medication ?Instructions ?Recorded clomiphene citrate 50 mg tablet 100 mg (2 x 50 mg) PO DAILY 7 days 06/11/24 #14 tabs bisacodyl 5 mg tablet,delayed 20 mg (4 x 5 mg) PO ONCE 1 day #4 11/28/24 release (Dulcolax (bisacodyl)) tabs famotidine 20 mg tablet 20 mg PO DAILY PRN GERD #90 tabs 11/28/24 polyethylene glycol 3350 17 238 g PO ONCE #238 grams 0 11/28/24 gram/dose oral powder (Miralax) docusate calcium 240 mg capsule 240 mg PO BEDTIME PRN constipation 12/03/24 #90 caps gabapentin 100 mg capsule 100 mg PO TID #90 caps 03/05 ketorolac 10 mg tablet 10 mg PO Q6H PRN pain #20 ta bs 03/05/25 prochlorperazine maleate 10 mg 10 mg PO Q6H PRN nausea and 03/05/25 tablet (Compazine) vomiting #12 tabs Allergies Allergy/AdvReac Type Severity Reaction Status Date / Time Influenza Virus Vaccines Allergy Intermediate dyspnea/chest Verified 03/05/25 22:08 tightness sumatriptan Allergy Unknown headache Verified 03/05/25 22:08 SARAH Inhibitors AdvReac Intermediate Cough Verified 03/05/25 22:08 Review of Systems 2 Review of Systems: Yes all other systems are reviewed and are negative Constitutional: Constitutional: Denies fatigue, Denies fever(s) and Reports headache(s) Eyes: Eyes: Denies change in vision ENT: Reports dizziness and Reports headache(s) Cardiovascular: Cardiovascular: Denies chest pain and Denies dyspnea Respiratory: Respiratory: Denies dyspnea Gastrointestinal: Gastrointestinal: Denies abdominal pain, Reports nausea and Denies vomiting Musculoskeletal: Musculoskeletal: Denies muscle weakness, Denies numbness and Denies tingling Neurologic: Reports dizziness, Reports headache(s), Denies numbness and Denies tingling Endocrine: Endocrine: Denies fatigue [facility] Past Medical History Attestation statement: The following information was validated with the patient. Medical History (Updated 03/05/25 @ 23:57 by LEXY Musa) Hypertriglyceridemia Diabetes EDMAR (obstructive sleep apnea) Anemia Mild acid reflux Constipation Colon cancer screening Surgical History (Updated 02/05/25 @ 14:41 by Aditi Arias RN) H/O colonoscopy Family History Family History (Updated 11/28/24 @ 11:38 by Colette Centeno CNP) Father Prostate cancer Social History Social History (Updated 11/28/24 @ 11:06 by Kyra Sun) Household Members: Family Alcohol intake: never Patient Tobacco Use Status: Never used Tobacco Advance Directives: No Advance Directives Information Provided: No Physical Exam 2 Vital Signs: Vital Signs: Last Vital Signs Temp 98.0 F 03/05/25 22:39 Pulse 72 03/05/25 22:39 Resp 18 03/05/25 22:39 BP 163/86 H 03/05/25 22:39 Pulse Ox 98 03/05/25 22:39 O2 Del Method Room Air 03/05/25 22:39 BMI result Body Mass Index 37.8 Const: Other: Alert well-appearing Orientation/consciousness: patient oriented x3 Resp: Effort & Inspection: normal respiratory effort Cardio: Other: Normal peripheral perfusion Skin: Other: Warm dry no rash Neuro: Other: No ataxia General: patient oriented x3, gait normal, no focal motor deficits and CN's II-XI intact bilaterally Extrem: Other: Strength 5/5 bilateral upper and lower extremities with resistance Psych: Other: Cooperative Course Reevaluation(s) Reevaluation #1: Headache resolved at the time of discharge Medications Administered Discontinued Medications Generic Name Dose Route Start Last Admin Trade Name Mumtazq PRN Reason Stop Dose Admin Dexamethasone Sodium Phosphate 10 mg 03/05/25 22:16 03/05/25 22:29 Dexamethasone Sod Phosphate 10 Mg/Ml Vial IVPUSH 03/05/25 22:17 10 mg ONCE ONE Administration Diphenhydramine HCl 25 mg 03/05/25 22:16 03/05/25 22:28 Diphenhydramine Hcl 50 Mg/Ml Vial IVPUSH 03/05/25 22:17 25 mg ONCE ONE Administration Sodium Chloride 500 mls @ 500 mls/hr 03/05/25 22:16 03/05/25 23:20 Ns IV 03/05/25 23:15 Infused .Q1H ONE Infusion Magnesium Sulfate 2 gm in 50 mls @ 150 mls/hr 03/05/25 22:42 03/05/25 23:20 Magnesium Sulfate/H2o IV 03/05/25 23:01 Infused ONCE ONE Infusion Ketorolac Tromethamine 15 mg 03/05/25 22:16 03/05/25 22:27 Ketorolac Tromethamine 15 Mg/Ml Vial IVPUSH 03/05/25 22:17 15 mg ONCE ONE Administration Prochlorperazine Edisylate 10 mg 03/05/25 22:16 03/05/25 22:27 Prochlorperazine Edisylate 10 Mg/2 Ml Vial IVPUSH 03/05/25 22:17 10 mg ONCE ONE Administration Medical Decision Making Medical Decision Making [facility] Narrative: 64-year-old male with a history of migraine, hypertension, hyperlipidemia, diabetes with suspect peripheral neuropathy, prior TIAs without residual deficits, GERD, who presents with migraine type headache x1 week. Pain is right-sided retro-orbital, with the associated dizziness, nausea, photophobia and phonophobia. Patient has a blurred vision at baseline, he explains that he receives ?injections into the eyeballs?. Patient also complains of bilateral burning sensation of the distal lower extremities, he states he has this frequently. Patient complains of neck pain or weakness of extremities. Patient denies recent illness or cough cold symptoms no fevers. Problem: Vascular risk factors, prior TIA, no migraine History: Per patient I have considered the following differential diagnoses: Migraine, CVA, meningitis, VAD, Plan: Patient has a history of migraine, he is here with a migraine type headache that he has had for a week, we will give a migraine cocktail. Given concurrent dizziness, with a history of prior TIAs, I have considered potential posterior circulation CVA, however the patient is neurologically intact without additional deficits, in the setting of having known migraines. Thought about meningitis, however no meningeal signs on exam no neck pain. Thought about VAD, however no preceding heavy lifting injury no other trauma, and he is neurologically intact. He does not warrant imaging. Screening labs sent including a viral panel. The patient also complains of bilateral lower extremity burning, he likely is developing neuropathy, we will send with a trial of gabapentin. I have independently reviewed the following tests: Labs: No leukocytosis, not anemic, no electrolyte abnormality other than subtly low magnesium of 1.4, viral panel negative Differential Diagnosis Differential Diagnoses: The differential diagnosis associated with the presentation includes See [facility] Admission/Observation Consideration of admission/observation: Escalation of care including admission/observation considered Not applicable Lab Data [facility] Lab Attestation statement: I reviewed the patient's lab results. 03/05/25 22:17 03/05/25 22:18 Labs: Lab Results 03/05/25 03/05/25 Range/Units 22:17 22:18 WBC 4.7 L (4.8-10.8) X10*3/uL RBC 5.28 (4.60-5.80) X10*6/uL Hgb 14.3 (14.0-18.0) g/dl Hct 42.7 (42.0-52.0) % MCV 80.9 (80.0-98.0) fL MCH 27.1 (27.0-33.0) pg MCHC 33.5 (31.0-36.0) g/dl RDW 12.8 (11.0-16.0) % Plt Count 303 (160-400) X10*3/uL MPV 10.1 (9.4-12.4) fL Immature Gran % (Auto) 0.2 (0.0-0.4) % Neut % (Auto) 51.3 (45-73) % Lymph % (Auto) 35.8 (20-40) % [place]ham % (Auto) 10.2 (2-11) % Eos % (Auto) 2.1 (0-4) % Baso % (Auto) 0.4 (0-2) % Lymph # (Auto) 1.7 (1.2-4.9) X10*3/uL [place] # (Auto) 0.5 (0.1-1.2) X10*3/uL Eos # (Auto) 0.1 (0.0-0.4) X10*3/uL Baso # (Auto) 0.0 (0.0-0.2) X10*3/uL Abs Immat Gran (auto) 0.01 (0.00-0.03) X10*3/uL Absolute Neuts (auto) 2.4 (2.0-8.3) x10*3/uL Absolute Nucleated RBC 0.000 (0.0-0.012) X10*3/uL Nucleated RBC % (auto) 0.0 (0.0-0.2) /100WBC Hold Blue Top SEE NOTE Sodium 140 (135-145) mmol/L Potassium 3.9 (3.3-5.1) mmol/L Chloride 105 (96-108) mmol/L Carbon Dioxide 24 (22-29) mmol/L Anion Gap 15 (12-20) BUN 17 H (9-16) mg/dL Creatinine 1.26 (0.5-1.4) mg/dL Estim Creat Clear Calc 67.1 Estimated GFR 58 Random Glucose 232 H (60-115) mg/dL Calcium 9.7 (8.4-10.2) mg/dL Magnesium 1.4 L* (1.6-2.6) mg/dL Total Bilirubin 0.5 (0.0-1.0) mg/dL AST 39 H (5-37) U/L ALT 84 H (0-40) U/L Alkaline Phosphatase 90 (39-117) U/L Total Protein 7.9 (6.5-8.0) g/dL Albumin 4.6 (3.5-5.0) g/dL Influenza Type A (PCR) NEGATIVE (Negative) Influenza Type B (PCR) NEGATIVE (Negative) RSV RNA Qual (PCR) NEGATIVE (Negative) SARS-CoV-2 RNA (RT-PCR) NEGATIVE (Negative) NIH Stroke Scale Internal: Initial- Upon Arrival Level of Consciousness: Alert Level of Consciousness Questions: Answers both questions correctly Level of Consciousness Commands: Performs both tasks correctly Best Gaze: Normal Visual: No visual loss Facial Palsy: Normal Motor Arm (Right): No drift Motor Arm (Left): No drift Motor Leg (Right): No drift Motor Leg (Left): No drift Limb Ataxia: Absent Sensory: Normal Best Language: No aphasia Dysarthia: Normal Extinction and Inattention: No abnormality Score: 0 Discharge Plan Discharge Clinical Impression: Migraine, Peripheral neuropathy Patient Disposition: Home, Self-Care Instructions: Migraine Headache (ED), Peripheral Neuropathy (ED) Additional Instructions: Overall all of your screening labs were normal, your magnesium was subtly low it was replenished. You were treated for a migraine headache that responded to our migraine medication. If you develop another migraine headache, take the following medication at the same time. It is their combined effect that helps to alleviate your headache pain. Ketorolac 10 mg Compazine 10 mg [id number] Benadryl 25 mg In regard to the bilateral burning sensation in your lower legs, you likely have neuropathy related to your diabetes. See home care instructions. I am giving you a limited prescription for gabapentin, this is the medication utilized to treat peripheral neuropathy. You should follow up with your primary care provider, they can continue to prescribe this medication to you if you find it beneficial. Call to schedule a follow up appointment with your primary care. Prescriptions: New prochlorperazine maleate [Compazine] 10 mg tablet 10 mg PO Q6H PRN (Reason: nausea and vomiting) Qty: 12 0RF ketorolac 10 mg tablet 10 mg PO Q6H PRN (Reason: pain) Qty: 20 0RF Rx Instructions: maximum total duration of 5 days from all oral, intranasal, or parenteral formulations, the patient had an IV dose of Toradol here in the emergency gabapentin 100 mg capsule 100 mg PO TID Qty: 90 0RF No Action docusate calcium 240 mg capsule 240 mg PO BEDTIME PRN (Reason: constipation) Qty: 90 1RF Rx Instructions: Take one tablet at bedtime as needed losartan 50 mg tablet 50 mg PO DAILY atorvastatin [Lipitor] 80 mg tablet 80 mg PO BEDTIME verapamil 120 mg capsule,ext rel. pellets 24 hr 120 mg PO DAILY metformin 1,000 mg tablet 1,000 mg PO BID omeprazole 20 mg capsule,delayed release(DR/EC) 20 mg PO BID famotidine 20 mg tablet 20 mg PO DAILY PRN (Reason: GERD) Qty: 90 0RF Rx Instructions: Take one tablet as needed for acid reflux bisacodyl [Dulcolax (bisacodyl)] 5 mg tablet,delayed release (DR/EC) 20 mg PO ONCE 1 Days Qty: 4 0RF Rx Instructions: Take four tablets pre colonoscopy instructions polyethylene glycol 3350 [Miralax] 17 gram/dose powder 238 g PO ONCE Qty: 238 0RF Rx Instructions: per colonoscopy prep instructions aspirin 81 mg tablet,delayed release (DR/EC) 81 mg PO DAILY chlorthalidone 25 mg tablet 25 mg PO DAILY carvedilol 6.25 mg tablet 6.25 mg PO BID diclofenac sodium 1 % gel 1 ea topical DAILY Mounjaro 5 mg/0.5 mL pen injector 10 mg subcut QWEEK clomiphene citrate 50 mg tablet 100 mg PO DAILY 7 Days Qty: 14 0RF Rx Instructions: Take 2 tablets daily for 7 days and complete lab work on day 8 [facility] 33 [id number] Print Language: Japanese
[2025-03-06 00:18] VITALS: BP 152/89; PULSE 74; RESP 18; TEMP 36.7; O2SAT 96
== END 2025-03-06 00:20 | disposition home or self-care (01) ==
PROVIDERS: Physician Assistant Medical; Emergency Provider Emergency Medicine; PCP Registered Nurse
DX: G43.909 Migraine, unspecified, not intractable, without status migrainosus (principal); G62.9 Polyneuropathy, unspecified; E11.9 Type 2 diabetes mellitus without complications; Z03.818 Encounter for observation for suspected exposure to other biological agents ruled out
CPT/HCPCS: 80053; 83735; 85025; 87637; 96365; 96375; 99284; 99285; J0737; J1100; J1200; J1885; J3475

== ENCOUNTER 2025-03-20 09:50 | Outpatient (REF) | payer OTHER, SELFPAY ==
[2025-03-20 12:37] LABS: Cholesterol 226 mg/dL (<200); HDL Cholesterol 43 mg/dL (>40); Triglycerides 315 mg/dL (<150)
[2025-03-20 12:59] LABS: Microalbum/Creatinine Ratio Ur 73.8 ug/mg cr (<30)
== END 2025-03-20 09:51 ==
LOC: HO.HHCL 09:50
PROVIDERS: Nurse Practitioner Family; PCP Registered Nurse; Visit Provider Registered Nurse
DX: E11.65 Type 2 diabetes mellitus with hyperglycemia (principal); N52.1 Erectile dysfunction due to diseases classified elsewhere; E29.1 Testicular hypofunction
CPT/HCPCS: 36415; 80061; 82043; 82570; 83002; 84402; 84403